=== PATIENT | female | born 1980 | race Caucasian/White ===

== ENCOUNTER 2018-01-05 01:09 | Emergency (ER) | payer BC ==
[2018-01-05] MEDS ORDERED: TETANUS & DIPHTHERIA TOX,ADULT 0.5 ML VIAL ONE (02:01)
[2018-01-05] MEDS ORDERED: LIDOCAINE 1% MPF 30 ML VIAL ONE (02:01)
[2018-01-05] MEDS ORDERED: DERMABOND SKIN ADHESIVE TOP ONE (02:42)
[2018-01-05] MEDS ORDERED: IBUPROFEN 200 MG TAB PO ONE (03:25)
--- NOTE | 2018-01-05 03:36 | ER ---
Nurse's Notes [facility] Name: Barbara Moreno Age: 37 yrs Sex: Female : 1980 Arrival Date: 01/05/2018 Time: 01:11 Bed 14 Private MD: Diagnosis: Laceration without foreign body of left hand;Laceration without foreign body of left forearm;Laceration without foreign body of right elbow;Abrasion of right forearm Presentation: 01/05 01:20 Presenting complaint: Patient states: "Was at home and accidentally hit a window ao glass." Patient presented with lacerations in right hand and bilateral elbows. Transition of care: patient was not received from another setting of care. Onset of symptoms is unknown. Risk Assessment: Do you want to hurt yourself or someone else? Patient reports no desire to harm self or others. Initial Sepsis Screen: Does the patient meet any 2 criteria? No. Patient's initial sepsis screen is negative. Does the patient have a suspected source of infection? No. Patient's initial sepsis screen is negative. Care prior to arrival: None. 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 - Social history:: Smoking status: Patient uses tobacco products, smokes one pack cigarettes per day. Patient uses alcohol, weekly. Patient/guardian denies using street drugs, IV drugs. - Ebola Screening: : Patient negative for fever greater than or equal to 101.5 degrees Fahrenheit, and additional compatible Ebola Virus Disease symptoms Patient denies exposure to infectious person Patient denies travel to an Ebola-affected area in the 21 days before illness onset. Screenin:06 Abuse screen: Denies threats or abuse. Nutritional screening: No deficits noted. jb4 Tuberculosis screening: No symptoms or risk factors identified. Fall Risk None identified. Assessment: 01:30 General: Appears in no apparent distress. uncomfortable, Behavior is calm, cooperative, jb4 appropriate for age, Smells of alcohol. Pain: Complains of pain in right hand, left hand, right arm and left arm Pain does not radiate. Pain currently is 10 out of 10 on a pain scale. at worst was 10 out of 10 on a pain scale. Quality of pain is described as sharp, Pain began 2 hours ago. Neuro: Level of Consciousness is awake, alert, obeys commands, Oriented to person, place, time, situation. Cardiovascular: Patient's skin is warm and dry. Respiratory: Airway is patent Respiratory effort is even, unlabored, Respiratory pattern is regular, symmetrical. GI: No signs and/or symptoms were reported involving the gastrointestinal system. : No signs and/or symptoms were reported regarding the genitourinary system. EENT: No signs and/or symptoms were reported regarding the EENT system. Derm: Skin is pink, warm \\T\\ dry. Musculoskeletal: Circulation, motion, and sensation intact. Injury Description: Laceration sustained to palmar aspect of distal phalanx of right little finger, palmar aspect of proximal phalanx of right ring finger, palmar aspect of distal phalanx of right thumb, outer aspect of right palm, palmar aspect of right forearm and left tricep is clean, full thickness, 2.6 to 7.5 cm long, bleeding moderately, Multiple smaller lacerations noted to the dorsal right forearm. 02:26 Reassessment: Patient appears in no apparent distress at this time. Patient and/or jb4 family updated on plan of care and expected duration. Pain level reassessed. Patient is alert, oriented x 3, equal unlabored respirations, skin warm/dry/pink. 03:21 Reassessment: Patient appears in no apparent distress at this time. Patient and/or jb4 family updated on plan of care and expected duration. Pain level reassessed. Patient is alert, oriented x 3, equal unlabored respirations, skin warm/dry/pink. Vital Signs: 01:22 BP 109 / 70; Pulse 86; Resp 20; Temp 98.1(O); Pulse Ox 98% on R/A; Weight 68.04 kg (R); ao Height 5 ft. 9 in. (175.26 cm); Pain 8/10; 02:15 BP 115 / 72; Pulse 71; Resp 16; Pulse Ox 100% on R/A; jb4 03:21 BP 117 / 64; Pulse 77; Resp 16; Pulse Ox 100% on R/A; jb4 01:22 Body Mass Index 22.15 (68.04 kg, 175.26 cm) ao ED Course: 01:11 Patient arrived in ED. am2 01:20 Octaviano Zhao, RN is Primary Nurse. ao 01:20 Vernon Arvizu, KIANA is PHCP. pm1 01:20 Shabbir Lorenzana MD is Attending Physician. pm1 01:20 Roni Donald, KARLOS is Primary Nurse. jb4 01:22 Triage completed. ao 01:24 Arm band placed on right wrist. Patient placed in an exam room, on a stretcher, on ao pulse oximetry, Patient notified of wait time. 02:06 Patient has correct armband on for positive identification. Bed in low position. Call jb4 light in reach. Side rails up X 1. Pulse ox on. NIBP on. 02:32 X-ray completed. Portable x-ray completed in exam room. Patient tolerated procedure kw well. 02:34 Elbow Left 3 View XRAY In Process Unspecified. EDMS 02:34 Hand Right 3 View XRAY In Process Unspecified. EDMS 02:34 Forearm Right XRAY In Process Unspecified. EDMS 03:21 Assist provider with laceration repair on palmar aspect of right forearm, outer aspect jb4 of right palm and left tricep that was between 2.6 to 7.5 cm using sutures. Set up tray. Performed by Vernon Arvizu [employer]RIER Dressed with Kerlix, Neosporin. 03:46 Patient did not have IV access during this emergency room visit. 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 Exp: jb4 02/24/2020. Lot #: [id number]. } Route: IM; Site: right deltoid; 02:53 Follow up: Response: No adverse reaction jb4 02:45 Drug: Lidocaine (1 %) 1 application Volume: 20 ml; Route: Infiltration; jb4 02:52 Follow up: Response: No adverse reaction; Pain is decreased jb4 03:20 Drug: Ibuprofen 600 mg Route: PO; jb4 03:37 Follow up: Response: No adverse reaction; Pain is decreased jb4 Outcome: 03:36 Discharge ordered by MD. pm1 03:45 Discharged to home ambulatory. jb4 03:45 Condition: stable 03:45 Discharge instructions given to patient, Instructed on discharge instructions, follow up and referral plans. medication usage, wound care, Demonstrated understanding of instructions, follow-up care, medications, wound care, Prescriptions given X 1. 03:46 Patient left the ED. jb4 Signatures: Dispatcher [employer] EDMS Rahel Lopez Alex, RN RN Vernon Sandoval NP [employer] pm1 Roni Dnoald RN RN jb4 Vonda Marcelino am2 Corrections: (The following items were deleted from the chart) 02:02 General: Appears in no apparent distress. uncomfortable, Behavior is calm, jb4 cooperative, appropriate for age, Smells of alcohol, jb4 02:02 Pain: Complains of pain in right hand, left hand, right arm and left arm Pain jb4 does not radiate. Pain currently is 10 out of 10 on a pain scale. at worst was 10 out of 10 on a pain scale. Quality of pain is described as sharp, Pain began 2 hours ago. 4 02:02 Neuro: Level of Consciousness is awake, alert, obeys commands, Oriented to jb4 person, place, time, situation, 4 02:02 Cardiovascular: Patient's skin is warm and dry. jb4 jb4 02:02 Respiratory: Airway is patent Respiratory effort is even, unlabored, Respiratory jb4 pattern is regular, symmetrical, jb4 02:02 GI: No signs and/or symptoms were reported involving the gastrointestinal system. jb4 jb4 02:02 : No signs and/or symptoms were reported regarding the genitourinary system. [id number] 02:02 EENT: No signs and/or symptoms were reported regarding the EENT system. jb4 jb4 02:02 Derm: Skin is pink, warm \\T\\ dry. jb4 jb4 02:02 Musculoskeletal: Circulation, motion, and sensation intact. jb4 4 02:02 Injury Description: Laceration sustained to palmar aspect of distal phalanx of jb4 right little finger, palmar aspect of proximal phalanx of right ring finger, palmar aspect of distal phalanx of right thumb, outer aspect of right palm, palmar aspect of right forearm and left tricep is clean, full thickness, 2.6 to 7.5 cm long, bleeding moderately, Multiple smaller lacerations noted to the dorsal right forearm jb4
--- NOTE | 2018-01-05 03:37 | EDPHYS ---
Physician Documentation [facility] Name: Barbara Moreno Age: 37 yrs Sex: Female : 1980 Arrival Date: 01/05/2018 Time: 01:11 Bed 14 Private MD: ED Physician Shabbir Lorenzana HPI: 01/05 02:00 This 37 yrs old Female presents to ER via EMS with complaints of Arm Injury, pm1 Laceration To Arm. 02:00 The patient or guardian complains of a laceration, irregular. The complaints affect the pm1 right hand and palmar aspect of right forearm, left elbow. Context: The problem was sustained outdoors. Onset: The symptoms/episode began/occurred just prior to arrival. Treatment prior to arrival includes: no previous treatment. Modifying factors: The symptoms are alleviated by nothing. the symptoms are aggravated by nothing. Associated signs and symptoms: Pertinent negatives: decreased range of motion, numbness, tingling. The patient has not experienced similar symptoms in the past. The patient has not recently seen a physician. Patient put her hands on a glass window to slide it upwards and she fell through the window and cut her right hand, right forearm and left elbow. 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 - Social history:: Smoking status: Patient uses tobacco products, smokes one pack cigarettes per day. Patient uses alcohol, weekly. Patient/guardian denies using street drugs, IV drugs. - Ebola Screening: : Patient negative for fever greater than or equal to 101.5 degrees Fahrenheit, and additional compatible Ebola Virus Disease symptoms Patient denies exposure to infectious person Patient denies travel to an Ebola-affected area in the 21 days before illness onset. ROS: 02:00 Constitutional: Negative for fever, chills, and weight loss, Eyes: Negative for injury, pm1 pain, redness, and discharge, ENT: Negative for injury, pain, and discharge, Neck: Negative for injury, pain, and swelling, Cardiovascular: Negative for chest pain, palpitations, and edema, Respiratory: Negative for shortness of breath, cough, wheezing, and pleuritic chest pain, Abdomen/GI: Negative for abdominal pain, nausea, vomiting, diarrhea, and constipation, Back: Negative for injury and pain, : Negative for injury, bleeding, discharge, and swelling, MS/Extremity: Negative for injury and deformity. 02:00 Skin: Positive for laceration(s), of the left elbow and palmar aspect of right forearm and right hand. Exam: 02:00 Constitutional: This is a well developed, well nourished patient who is awake, alert, pm1 and in no acute distress. Head/Face: Normocephalic, atraumatic. Eyes: Pupils equal round and reactive to light, extra-ocular motions intact. Lids and lashes normal. Conjunctiva and sclera are non-icteric and not injected. Cornea within normal limits. Periorbital areas with no swelling, redness, or edema. ENT: Nares patent. No nasal discharge, no septal abnormalities noted. Tympanic membranes are normal and external auditory canals are clear. Oropharynx with no redness, swelling, or masses, exudates, or evidence of obstruction, uvula midline. Mucous membranes moist. Neck: Trachea midline, no thyromegaly or masses palpated, and no cervical lymphadenopathy. Supple, full range of motion without nuchal rigidity, or vertebral point tenderness. No Meningismus. Chest/axilla: Normal chest wall appearance and motion. Nontender with no deformity. No lesions are appreciated. Cardiovascular: Regular rate and rhythm with a normal S1 and S2. No gallops, murmurs, or rubs. Normal PMI, no JVD. No pulse deficits. Respiratory: Lungs have equal breath sounds bilaterally, clear to auscultation and percussion. No rales, rhonchi or wheezes noted. No increased work of breathing, no retractions or nasal flaring. Abdomen/GI: Soft, non-tender, with normal bowel sounds. No distension or tympany. No guarding or rebound. No evidence of tenderness throughout. Back: No spinal tenderness. No costovertebral tenderness. Full range of motion. 02:00 MS/ Extremity: Pulses equal, no cyanosis. Neurovascular intact. Full, normal range of motion. 02:00 Skin: Appearance: normal except for affected area, injury, laceration(s), that can be described as no foreign body, irregular. 02:00 Neuro: Orientation: is normal, Motor: is normal, moves all fours, Gait: is steady, at a normal pace, without difficulty. Vital Signs: 01:22 BP 109 / 70; Pulse 86; Resp 20; Temp 98.1(O); Pulse Ox 98% on R/A; Weight 68.04 kg (R); ao Height 5 ft. 9 in. (175.26 cm); Pain 8/10; 02:15 BP 115 / 72; Pulse 71; Resp 16; Pulse Ox 100% on R/A; jb4 03:21 BP 117 / 64; Pulse 77; Resp 16; Pulse Ox 100% on R/A; jb4 01:22 Body Mass Index 22.15 (68.04 kg, 175.26 cm) ao Laceration: 03:37 Wound Repair of 15cm ( 5.9in ) subcutaneous laceration to palmar aspect of right pm1 forearm and left elbow and right hand. Irregularly shaped.. Distal neuro/vascular/tendon intact. Anesthesia: Local anesthetic administered with 6 mls of Lido/Marcaine. Wound prep: Extensive cleansing with hibiclenz by nurse, Wound irrigation with saline by me, Wound explored extensively, Copious irrigation. Skin closed with 26 4-0 Prolene using simple sutures and sterile technique. Dressed with 4x4's. Patient tolerated well. MDM: 01:20 Patient medically screened. pm1 03:35 Data reviewed: vital signs. Data interpreted: Pulse oximetry: on room air is 100 %. pm1 Interpretation: normal. Counseling: I had a detailed discussion with the patient and/or guardian regarding: the historical points, exam findings, and any diagnostic results supporting the discharge/admit diagnosis, radiology results, the need for outpatient follow up, to return to the emergency department if symptoms worsen or persist or if there are any questions or concerns that arise at home. 01/05 01:28 Order name: Elbow Left 3 View XRAY pm1 01/05 01:28 Order name: Hand Right 3 View XRAY pm1 01/05 01:28 Order name: Forearm Right XRAY pm1 01/05 01:28 Order name: Prolene, Sutures; Complete Time: 02:53 pm1 01/05 01:28 Order name: Dressing - Wound; Complete Time: 01:56 pm1 01/05 01:28 Order name: Gloves, Sterile; Complete Time: 01:56 pm1 01/05 01:28 Order name: Setup Suture Tray; Complete Time: 01:56 pm1 01/05 03:34 Order name: Dermabond; Complete Time: 03:37 pm1 Administered Medications: 01:56 Not Given (Physician Discretion; Pt consumed unknown amount of alcohol.): [place] 5 jb4 mg-325 mg 1 tabs PO once 02:01 Drug: Tetanus-Diphtheria Toxoid Adult 0.5 ml {[employer]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 Exp: jb4 02/24/2020. Lot #: [id number]. } Route: IM; Site: right deltoid; 02:53 Follow up: Response: No adverse reaction jb4 02:45 Drug: Lidocaine (1 %) 1 application Volume: 20 ml; Route: Infiltration; jb4 02:52 Follow up: Response: No adverse reaction; Pain is decreased jb4 03:20 Drug: Ibuprofen 600 mg Route: PO; jb4 03:37 Follow up: Response: No adverse reaction; Pain is decreased jb4 Disposition: 03:52 Co-signature as Attending Physician, Shabbir Lorenzana MD. andrei Disposition: 01/05/18 03:36 Discharged to Home. Impression: Laceration without foreign body of left hand, Laceration without foreign body of left forearm, Laceration without foreign body of right elbow, Abrasion of right forearm. - Condition is Stable. - Discharge Instructions: Tissue Adhesive Wound Care, Laceration Care, Adult. - Prescriptions for Keflex 500 mg Oral Capsule - take 1 capsule by ORAL route every 12 hours for 10 days; 20 capsule. - Medication Reconciliation Form, Thank You Letter, Antibiotic Education form. - Follow up: Emergency Department; When: As needed; Reason: Worsening of condition. Follow up: Private Physician; When: 10 - 14 days; Reason: Recheck today's complaints, Continuance of care, Staple/Suture removal, Re-evaluation by your physician. - Problem is new. - Symptoms have improved. Signatures: Dispatcher [employer] EDMS Shabbir Lorenzana MD MD pkl Ortiz, Alex, RN RN ao Marinas, Patrick, TOXICS PROGRAM OFFICER TOXICS PROGRAM OFFICER pm1 Roni Donald RN RN jb4 Corrections: (The following items were deleted from the chart) 03:46 03:36 01/05/2018 03:36 Discharged to Home. Impression: Laceration without foreign body jb4 of left hand; Laceration without foreign body of left forearm; Laceration without foreign body of right elbow; Abrasion of right forearm. Condition is Stable. Forms are Medication Reconciliation Form, Thank You Letter, Antibiotic Education, Prescription Opioid Use. Follow up: Emergency Department; When: As needed; Reason: Worsening of condition. Follow up: Private Physician; When: 10 - 14 days; Reason: Recheck today's complaints, Continuance of care, Staple/Suture removal, Re-evaluation by your physician. Problem is new. Symptoms have improved. pm1
--- NOTE | 2018-01-05 08:44 | RAD REPORT ---
EXAM DESCRIPTION: RAD - Hand Right 3 View - 01/05/2018 2:34 am CLINICAL HISTORY: Hand trauma, laceration COMPARISON: None. FINDINGS: No fracture is identified. There is no dislocation or periosteal reaction noted. No forei gn body or other soft tissue abnormality. IMPRESSION: Negative right hand examination. No retained foreign body identified.
--- NOTE | 2018-01-05 08:45 | RAD REPORT ---
EXAM DESCRIPTION: RAD - Elbow Left 3 View - 01/05/2018 2:34 am CLINICAL HISTORY: Fall through plate glass window, elbow pain, laceration COMPARISON: None. FINDINGS: No fracture is identified and no elevated posterior fat pad. There is no dislocation or pe riosteal reaction noted. No foreign body or other soft tissue abnormality. IMPRESSION: Negative left elbow examination. No retained foreign body.
--- NOTE | 2018-01-05 08:46 | RAD REPORT ---
EXAM DESCRIPTION: RAD - Forearm Right - 01/05/2018 2:34 am CLINICAL HISTORY: Fall through plate glass window, arm pain COMPARISON: None. FINDINGS: No fracture is identified. There is no dislocation or periosteal reaction noted. Plate and screws are in place from prior proximal ulna fracture repair. No hardware fracture. Patient has remodeling changes near the articular surface of the ulna. No elbow joint effusion suspected. No retained foreign body seen. IMPRESSION: Negative right forearm examination. No retained foreign body seen.
== END 2018-01-05 03:46 | disposition home or self-care (01) ==
LOC: ER 01:09
PROC: 0JQJ0ZZ Repair Right Hand Subcutaneous Tissue and Fascia, Open Approach (ICD-10-PCS; principal; 2018-01-05)
PROC: 0JQH0ZZ Repair Left Lower Arm Subcutaneous Tissue and Fascia, Open Approach (ICD-10-PCS; 2018-01-05)
PROC: 0JQG0ZZ Repair Right Lower Arm Subcutaneous Tissue and Fascia, Open Approach (ICD-10-PCS; 2018-01-05)
DX: S61.412A Laceration without foreign body of left hand, initial encounter (principal); S51.812A Laceration without foreign body of left forearm, initial encounter; S51.012A Laceration without foreign body of left elbow, initial encounter; W18.02XA Striking against glass with subsequent fall, initial encounter; Y93.89 Activity, other specified; Y92.009 Unspecified place in unspecified non-institutional (private) residence as the place of occurrence of the external cause; Z23 Encounter for immunization
CPT/HCPCS: 90714; 99284

== ENCOUNTER 2018-01-18 17:45 | Emergency (ER) | payer BC ==
--- NOTE | 2018-01-18 18:30 | ER ---
Nurse's Notes [facility] Name: Barbara Moreno Age: 37 yrs Sex: Female : 1980 Arrival Date: 01/18/2018 Time: 17:48 Bed 12 Private MD: Diagnosis: Encounter for removal of sutures Presentation: 01/18 18:00 Presenting complaint: Patient states: "I need my stitches taken out." Sutures noted to ph R palm, R forearm, and L elbow, some redness present, pt denies drainage or fever. Transition of care: patient was not received from another setting of care. Onset of symptoms was January 18, 2018. Risk Assessment: Do you want to hurt yourself or someone else? Patient reports no desire to harm self or others. Care prior to arrival: None. 18:00 Method Of Arrival: Ambulatory 18:00 Acuity: [place] 5 ph 18:06 Initial Sepsis Screen: Does the patient meet any 2 criteria? No. Patient's initial ph sepsis screen is negative. Does the patient have a suspected source of infection? No. Patient's initial sepsis screen is negative. Historical: - Allergies: 18:03 No Known Allergies; ph - Home Meds: 18:03 Adderall XR 5 mg Oral cp24 1 cap once daily [Active]; ph - PSHx: 18:03 None; ph - Immunization history:: Adult Immunizations unknown, Last tetanus immunization: up to date. - Social history:: Smoking status: Patient uses tobacco products, smokes one-half pack cigarettes per day. - Ebola Screening: : No symptoms or risks identified at this time. Screenin:06 Abuse screen: Denies threats or abuse. Denies injuries from another. Nutritional ph screening: No deficits noted. Tuberculosis screening: No symptoms or risk factors identified. Fall Risk None identified. Assessment: 18:06 General: Appears in no apparent distress. comfortable, slender, well groomed, Behavior ph is calm, cooperative, appropriate for age, Denies fever. Pain: Complains of pain in right hand, right arm and left arm Pain currently is 1 out of 10 on a pain scale. Quality of pain is described as "soreness". Neuro: Level of Consciousness is awake, alert, obeys commands, Oriented to person, place, time, situation. Cardiovascular: Capillary refill < 3 seconds in bilateral fingers Patient's skin is warm and dry. Respiratory: Airway is patent Respiratory effort is even, unlabored. Derm: Skin is healthy with good turgor, Skin is pink, warm \\T\\ dry. sutures noted to R palm, R forearm and L elbow. Musculoskeletal: Circulation, motion, and sensation intact. Range of motion: intact in all extremities. Vital Signs: 18:01 BP 144 / 97; Pulse 95; Resp 18; Temp 97.3; Pulse Ox 98% on R/A; Weight 68.04 kg; Height ph 5 ft. 9 in. (175.26 cm); Pain 2/10; 18:01 Body Mass Index 22.15 (68.04 kg, 175.26 cm) ph ED Course: 17:48 Patient arrived in ED. as 18:01 Triage completed. ph 18:04 [facility]C [facility]. snw 18:04 Andre Field MD is Attending Physician. snw 18:05 Esther Landa, RN is Primary Nurse. ph 18:06 Arm band placed on Patient placed in an exam room. ph 18:06 Patient has correct armband on for positive identification. Call light in reach. ph 19:12 No provider procedures requiring assistance completed. Patient did not have IV access hb during this emergency room visit. Administered Medications: No medications were administered Outcome: 18:29 Discharge ordered by . snw 19:12 Discharged to home ambulatory. hb 19:12 Condition: stable 19:12 Discharge instructions given to patient, Instructed on discharge instructions, follow up and referral plans. medication usage, Demonstrated understanding of instructions, follow-up care, medications, wound care. 19:13 Patient left the ED. hb Signatures: Maria Ines Bui FNP-C FNP-Trish Patterson as Esther Landa, RN RN Bettye Pineda RN RN hb
--- NOTE | 2018-01-18 18:30 | EDPHYS ---
Physician Documentation [facility] Name: Barbara Moreno Age: 37 yrs Sex: Female : 1980 Arrival Date: 01/18/2018 Time: 17:48 Bed 12 Private MD: ED Andre Luis HPI: 01/18 19:00 This 37 yrs old Female presents to ER via Ambulatory with complaints of snw Suture Removal. 19:00 The patient has sutures on the left arm and right arm and right hand. Previous snw treatment: The patient was initially treated on January 05, 2018, the care was rendered at [facility], Treatment type: The patient's original treatment included sutures, Outpatient prescription(s): The patient was given prescription(s) for Keflex. Sutures/bro progress: The patient has no c/o's. The wound is well-healing with no redness, swelling, discharge, or dehiscence reported. The patient has not experienced similar symptoms in the past. The patient has not recently seen a physician. Historical: - Allergies: 18:03 No Known Allergies; ph - Home Meds: 18:03 Adderall XR 5 mg Oral cp24 1 cap once daily [Active]; ph - PSHx: 18:03 None; ph - Immunization history:: Adult Immunizations unknown, Last tetanus immunization: up to date. - Social history:: Smoking status: Patient uses tobacco products, smokes one-half pack cigarettes per day. - Ebola Screening: : No symptoms or risks identified at this time. ROS: 19:02 Constitutional: Negative for fever, chills, and weight loss, Eyes: Negative for injury, snw pain, redness, and discharge, ENT: Negative for injury, pain, and discharge, Neck: Negative for injury, pain, and swelling, Cardiovascular: Negative for chest pain, palpitations, and edema, Respiratory: Negative for shortness of breath, cough, wheezing, and pleuritic chest pain, Abdomen/GI: Negative for abdominal pain, nausea, vomiting, diarrhea, and constipation, Back: Negative for injury and pain, : Negative for injury, bleeding, discharge, and swelling, MS/Extremity: Negative for injury and deformity, Neuro: Negative for headache, weakness, numbness, tingling, and seizure. 19:02 Skin: Positive for laceration(s), with sutures intact, sites healthy, pt without complaint. Exam: 19:07 Constitutional: This is a well developed, well nourished patient who is awake, alert, snw and in no acute distress. Head/Face: Normocephalic, atraumatic. Eyes: Pupils equal round and reactive to light, extra-ocular motions intact. Lids and lashes normal. Conjunctiva and sclera are non-icteric and not injected. Cornea within normal limits. Periorbital areas with no swelling, redness, or edema. ENT: Nares patent. No nasal discharge, no septal abnormalities noted. Tympanic membranes are normal and external auditory canals are clear. Oropharynx with no redness, swelling, or masses, exudates, or evidence of obstruction, uvula midline. Mucous membranes moist. Neck: Trachea midline, no thyromegaly or masses palpated, and no cervical lymphadenopathy. Supple, full range of motion without nuchal rigidity, or vertebral point tenderness. No Meningismus. Chest/axilla: Normal chest wall appearance and motion. Nontender with no deformity. No lesions are appreciated. Cardiovascular: Regular rate and rhythm with a normal S1 and S2. No gallops, murmurs, or rubs. Normal PMI, no JVD. No pulse deficits. Respiratory: Lungs have equal breath sounds bilaterally, clear to auscultation and percussion. No rales, rhonchi or wheezes noted. No increased work of breathing, no retractions or nasal flaring. Abdomen/GI: Soft, non-tender, with normal bowel sounds. No distension or tympany. No guarding or rebound. No evidence of tenderness throughout. Back: No spinal tenderness. No costovertebral tenderness. Full range of motion. MS/ Extremity: Pulses equal, no cyanosis. Neurovascular intact. Full, normal range of motion. Neuro: Awake and alert, GCS 15, oriented to person, place, time, and situation. Cranial nerves II-XII grossly intact. Motor strength 5/5 in all extremities. Sensory grossly intact. Cerebellar exam normal. Normal gait. Psych: Awake, alert, with orientation to person, place and time. Behavior, mood, and affect are within normal limits. 19:07 Skin: Appearance: normal except for affected area, injury, healing lacerations with sutures intact. No noted s/s infection, areas well approximated. Vital Signs: 18:01 BP 144 / 97; Pulse 95; Resp 18; Temp 97.3; Pulse Ox 98% on R/A; Weight 68.04 kg; Height ph 5 ft. 9 in. (175.26 cm); Pain 2/10; 18:01 Body Mass Index 22.15 (68.04 kg, 175.26 cm) ph MDM: 18:07 Patient medically screened. snw 18:20 ED course: initial 01/05/18, on Keflex. snw 19:01 Data reviewed: vital signs, nurses notes. Data interpreted: Pulse oximetry: on room air snw is 98 %. Interpretation: normal. Counseling: I had a detailed discussion with the patient and/or guardian regarding: the historical points, exam findings, and any diagnostic results supporting the discharge/admit diagnosis, the presence of at least one elevated blood pressure reading (>120/80) during this emergency department visit, the need for outpatient follow up, to return to the emergency department if symptoms worsen or persist or if there are any questions or concerns that arise at home. Administered Medications: No medications were administered Disposition: 01/19 07:01 Co-signature as Attending Physician, Andre Field MD I agree with the assessment and erendira plan of care. Disposition: 01/18/18 18:29 Discharged to Home. Impression: Encounter for removal of sutures. - Condition is Stable. - Discharge Instructions: Hypertension, Suture Removal, Care After, Incision Care, Adult. - Medication Reconciliation Form, Thank You Letter, Antibiotic Education, Prescription Opioid Use form. - Follow up: Private Physician; When: 2 - 3 days; Reason: Recheck today's complaints, Continuance of care, Re-evaluation by your physician. Follow up: Emergency Department; When: As needed; Reason: Worsening of condition. Signatures: Andre Field MD MD cha Therrien, Shelly, CLAY MOLDER-C CLAY MOLDER-Csnw Esther Landa, RN RN ph Bettye Pineda RN RN hb Corrections: (The following items were deleted from the chart) 01/18 19:13 18:29 01/18/2018 18:29 Discharged to Home. Impression: Encounter for removal of hb sutures. Condition is Stable. Forms are Medication Reconciliation Form, Thank You Letter, Antibiotic Education, Prescription Opioid Use. Follow up: Private Physician; When: 2 - 3 days; Reason: Recheck today's complaints, Continuance of care, Re-evaluation by your physician. Follow up: Emergency Department; When: As needed; Reason: Worsening of condition. snw
== END 2018-01-18 19:13 | disposition home or self-care (01) ==
LOC: ER 17:45
DX: Z48.02 Encounter for removal of sutures (principal); F17.210 Nicotine dependence, cigarettes, uncomplicated
CPT/HCPCS: 99281

== ENCOUNTER 2024-01-26 16:56 | Inpatient (IN) | payer BC, SELFPAY ==
--- OUTSIDE RECORDS SUMMARY | 2024-01-26 17:00 | XMS REPORT | Continuity of Care Document ---
Author Name Unknown Address [address] [facility] [address] [place] [address] [facility] thconnect Address [address] [facility] [address] [place] [address] Care Team Providers Care Commercial Insulator Name Role Phone PCP, PATIENT DOES NOT HAVE A Primary Care Physic campbell Unavailable KUN VERGARA Attending Clinician KUN Castillo Attending Clinician SHAHLA Mary Attending Clinician Unavailable SHAHLA BISWAS Attending Clinician Unavailable Doctor Unassigned, [place] Attending Clinician U Kun Velasco MD Attending Clinician + [phone], [facility] Attending Clinician Unavailable Michelle Cruz DNP Attending Clinician [phone] GI MATHEW Attending Clinician Unavailable MICHELLE CRUZ Attending Clinician UnavailYocasta Martinez MD Attending Clinician [phone] Sandra Loco Attending Clinician [phone] Mitra Massey Attending Clinician [phone] MITRA RODRIGUEZ Attending Clinician Unavailable Eliza Balderrama RN Attending Clinician Unavailable Doctor Unassigned, [place] Attending Clinician U navailable 2, [facility] Attending Clinician Unavailable Narcisa EVERETT, Mikayla Johnston Attending Clinician Unavailab LENNIE Mckeon Attending Clinician UnavailAsael Morin DO Attending Clinician [phone], [facility] Attending Clinician Unavailable Paulie Cárdenas MD Attending Clinician Lab, [facility] Fam Pob I Attending Clinician Unavailab Saskia Ward Attending Clinician SASKIA BARTON Attending Clinician Unavailable Jocelin PATRICIO, Khris Attending Clinician Payers Payer Name Policy Type Policy Number Effective Date Expirati on Date Source [facility] [id number] 2016 00:00:00 Problems Condition Name Condition Details Condition Category Status Onset Date Resolution Date Last Treatment Date Treating Clinician Comments Source Right elbow pain Right elbow pain Disease Active 09-10 00:00: 00 [facility] Allergies, Adverse Reactions, Alerts Allergy Name Allergy Type Status Severity Reaction(s) Onset Date Inactive Date Treating Clinician Comments Source NO KNOWN ALLERGIE S Drug Class Active [facility] Social History Social Habit Start Date Stop Date Quantity Comments [facility] intake 2023-11-25 00:00:00 2023-11-25 00:00:00 12 /d [facility] Tobacco use and exposure 2023-11-25 00:00:00 2023-11-25 00:00:00 Former smokeless tobacco user [facility] Exposure to SARS-CoV-2 (event) 2022-04-12 00:00:00 2022-04-22 14:16:00 Not sure [facility] History of tobacco use 2020-09-29 00:00:00 User of smokeless tobacco [facility] Alcohol intake 2019-09-02 00:00:00 2019-09-02 00:00:00 12 /d [facility] History of Social function 2018-09-15 00:00:00 2018-09-15 00:00:00 [facility] Cigarettes smoked current (pack per day) - Reported 2016-09-17 00:00:00 2016-09-17 00:00:00 [facility] Sex assigned at 1980 00:00:00 1980 00:00:00 [facility] Smoking Status Start Date Stop Date Source Ex-smoker 2023-11-25 00:00:00 2023-11-25 [facility] tobacco daily 2016-09-17 00:00:00 [facility] Medications Ordered Medication Name Filled Medication Name Start Date Stop Date Current Medication? Ordering Clinician Indication Dosage Frequency Signature (SIG) Comments Components Source metroNIDAZO LE (FLAGYL) 500 mg tablet 11-26 00:00: 00 Yes [id number] 500mg Take 1 tablet by mouth every 12 (twelve) hours. [facility] fluconazole (DIFLUCAN) 150 mg tablet 11-26 00:00: 00 11-27 04:59 :00 Yes [id number] 150mg Take 1 tablet by mouth once now for 1 dose. [facility] valACYclovi r (VALTREX) 1 gram tablet 11-24 00:00: 00 Yes [id number] 1g Take 1 tablet by mouth in the morning and 1 tablet in the evening. [facility] fluconazole (DIFLUCAN) 150 mg tablet 11-24 00:00: 00 11-25 04:59 :00 Yes [id number] 150mg Take 1 tablet by mouth once now for 1 dose. [facility] ACYCLOVIR 200 mg capsule 20 00:00: 00 Yes [id number] TAKE ONE (1) CAPSULE(S) BY MOUTH 5 TIMES DAILY. [facility] acyclovir 200 mg capsule 2-24 00:00: 00 07-25 00:00 :00 No [id number] 200mg Take 1 capsule by mouth 5 (five) times daily. [facility] lidocaine 5 % ointment 2-16 00:00: 00 Yes Apply to area(s) 2 (two) times daily as needed (PAIN). [facility] lidocaine 2 % mucosal jelly 2023-0 2-15 00:00: 00 Yes [id number] Apply to affected area q 8hrs prn [facility] acyclovir 200 mg capsule 2-15 00:00: 00 05-01 00:00 :00 No [id number] 200mg Take 1 capsule by mouth 5 (five) times daily. [facility] ALPRAZolam (XANAX) 0.25 mg tablet 10-30 15:52: 22 10-30 00:00 :00 No .25mg Take 0.25 mg by mouth 3 (three) times daily as needed. [facility] dextroamphe tamine-amph etamine (ADDERALL) 20 mg tablet 10-30 15:26: 23 Yes 20mg Take 20 mg by mouth 2 (two) times daily. [facility] dextroamphe tamine-amph etamine (ADDERALL) 20 mg tablet 10-30 10:26: 23 Yes 20mg Take 20 mg by mouth 2 (two) times daily. [facility] miSOPROStoL 200 mcg tablet 10-30 00:00: 00 Yes [id number] 200ug Take 1 tablet by mouth every 12 (twelve) hours. Take one table the night prior to procedure and the 2nd one on the morning of the procedure [facility] ALPRAZolam 0.5 mg tablet 10-09 00:00: 00 Yes TAKE ONE (1) TABLET(S) BY MOUTH TWICE A DAY NEEDED FOR PAIN. [facility] dextroamphe tamine-amph etamine 15 mg tablet 10-09 00:00: 00 10-30 00:00 :00 No 15mg Take 15 mg by mouth 3 (three) times daily. [facility] omeprazole (PRILOSEC) capsule 20 mg 07-12 14:00: 00 Yes 20mg 20 mg, Oral, DAILY, First dose on Wed07/12/20 at 0900, Until Discontinu ed, Routine [facility] hydrOXYzine (ATARAX) tablet 25 mg 07-12 06:45: 07-12 05:48 :00 No 25mg 25 mg, Oral, ONCE, 1 dose, 07[facility]12[facility]20 [facility] 0145[facility] famot[facility] (PEPCID AC[facility] 20 mg 07-12 06:45: 00 07-12 05:49 :00 No 20mg 20 mg, Oral, ONCE, 1 dose, 07/12/20 [facility] 0145[facility] dexamethaso ne (DECADRON PHOSPHATE) injection 10 mg 07-12 06:45: 00 07-12 05:50 :00 No 10mg 10 mg, Oral, ONCE, 1 dose, 07/12/20 at 0145, Routine [facility] cetirizine (ZYRTEC) 10 mg tablet 07-12 00:00: 00 08-12 04:59 :00 No [id number] 10mg Take 1 tablet by mouth daily for 30 days. [facility] famotidine (PEPCID AC) tablet 20 mg 09-01 21:00: 00 09-01 19:59 :00 No 20mg 20 mg, Oral, ONCE, 1 dose, 09/02/19 at 1600, [facility] diphenhydrA MINE (BENADRYL) tablet 25 mg 09-01 21:00: 00 09-01 19:59 :00 No 25mg 25 mg, Oral, ONCE, 1 dose, 09/02/19 at 1600, [facility] dexamethaso ne (DECADRON PHOSPHATE) injection 10 mg 09-01 20:45: 00 09-01 19:54 :00 No 10mg 10 mg, Intramuscu lar, ONCE, 1 dose, 09/02/19 at 1545, STAT [facility] diphenhydrA MINE (BENADRYL ALLERGY) 25 mg tablet 09-01 00:00: 00 10-30 00:00 :00 No [id number] 25mg Take 1 tablet by mouth every 4 (four) hours as needed for Itching or Allergies (swelling) . [facility] famotidine (PEPCID) 20 mg tablet 09-01 00:00: 00 10-30 00:00 :00 No [id number] 20mg Take 1 tablet by mouth 2 (two) times daily. [facility] predniSONE 20 mg tablet 09-01 00:00: 00 09-07 04:59 :00 No [id number] 60mg Take 3 tablets by mouth every morning for 5 days. [facility] ALPRAZolam (XANAX) 0.25 mg tablet 07-19 18:53: 08 Yes .25mg Take 0.25 mg by mouth 3 (three) times daily as needed. [facility] dextroamphe tamine-amph etamine (ADDERALL) 20 mg tablet 07-19 18:53: 08 Yes 20mg Take 20 mg by mouth 2 (two) times daily. [facility] cefUROXime 250 mg tablet 07-19 00:00: 00 10-30 00:00 :00 No [id number] 250mg Take 1 tablet by mouth 2 (two) times daily. [facility] Vital Signs Vital Name Observation Time Observation Value Comments S ource Systolic blood pressure 2023-11-25 14:18:00 125 mm[Hg] [facility] Diastolic blood pressure 2023-11-25 14:18:00 86 mm[Hg] [facility] Heart rate 2023-11-25 14:18:00 110 /min [facility] Body temperature 2023-11-25 14:18:00 37.06 Sanaz [facility] Body height 2023-11-25 14:18:00 176.5 cm [facility] Body weight 2023-11-25 14:18:00 73.936 kg [facility] BMI 2023-11-25 14:18:00 23.73 kg/m2 [facility] Systolic blood pressure 2022-04-22 21:05:00 158 mm[Hg] [facility] Diastolic blood pressure 2022-04-22 21:05:00 100 mm[Hg] [facility] Heart rate 2022-04-22 20:56:00 112 /min [facility] Body height 2022-04-22 20:56:00 176.5 cm [facility] weight 2022-04-22 20:56:00 73.029 kg Univ [facility] BMI 2022-04-22 20:56:00 23.43 kg/m2 Univ [facility] Systolic blood pressure 2021-09-04 18:49:00 160 mm[Hg] [facility] Diastolic blood pressure 2021-09-04 18:49:00 126 mm[Hg] [facility] Heart rate 2021-09-04 18:48:00 107 /min Unive [facility] Body temperature 2021-09-04 18:48:00 36.83 Sanaz [facility] Respiratory rate 2021-09-04 18:48:00 18 /min [facility] Body height 2021-09-04 18:48:00 175.3 cm Univ [facility] Body weight 2021-09-04 18:48:00 70.716 kg [facility] BMI 2021-09-04 18:48:00 23.02 kg/m2 [facility] Oxygen saturation in Arterial blood by Pulse oximetry 2021-09-04 18:48:00 99 /min [facility] Systolic blood pressure 2020-10-30 15:25:00 134 mm[Hg] [facility] Diastolic blood pressure 2020-10-30 15:25:00 93 mm[Hg] [facility] Heart rate 2020-10-30 15:16:00 116 /min Unive [facility] Body temperature 2020-10-30 15:16:00 36.44 Sanaz [facility] Respiratory rate 2020-10-30 15:16:00 18 /min [facility] Body height 2020-10-30 15:16:00 170.2 cm Univ [facility] Body weight 2020-10-30 15:16:00 70.308 kg Univ [facility] BMI 2020-10-30 15:16:00 24.28 kg/m2 [facility] Systolic blood pressure 2020-07-12 06:00:00 119 mm[Hg] [facility] Diastolic blood pressure 2020-07-12 06:00:00 93 mm[Hg] [facility] Heart rate 2020-07-12 06:00:00 96 /min Unive [facility] Respiratory rate 2020-07-12 06:00:00 22 /min [facility] Oxygen saturation in Arterial blood by Pulse oximetry 2020-07-12 06:00:00 100 /min [facility] Body temperature 2020-07-12 05:21:00 36.61 Sanaz [facility] Body height 2020-07-12 05:21:00 170.2 cm [facility] Body weight 2020-07-12 05:21:00 68.04 kg [facility] BMI 2020-07-12 05:21:00 23.49 kg/m2 [facility] Systolic blood pressure 2019-09-02 19:21:00 151 mm[Hg] [facility] Diastolic blood pressure 2019-09-02 19:21:00 108 mm[Hg] [facility] Heart rate 2019-09-02 19:21:00 110 /min [facility] Body temperature 2019-09-02 19:21:00 37.22 Sanaz [facility] Respiratory rate 2019-09-02 19:21:00 18 /min [facility] Body height 2019-09-02 19:21:00 175.3 cm [facility] Body weight 2019-09-02 19:21:00 68.04 kg [facility] BMI 2019-09-02 19:21:00 22.15 kg/m2 [facility] Oxygen saturation in Arterial blood by Pulse oximetry 2019-09-02 19:21:00 100 /min [facility] Systolic blood pressure 2019-09-02 19:21:00 151 mm[Hg] [facility] Diastolic blood pressure 2019-09-02 19:21:00 108 mm[Hg] [facility] Heart rate 2019-09-02 19:21:00 110 /min [facility] Body temperature 2019-09-02 19:21:00 37.22 Sanaz [facility] Respiratory rate 2019-09-02 19:21:00 18 /min [facility] Body height 2019-09-02 19:21:00 175.3 cm [facility] Body weight 2019-09-02 19:21:00 68.04 kg [facility] BMI 2019-09-02 19:21:00 22.15 kg/m2 [facility] Oxygen saturation in Arterial blood by Pulse oximetry 2019-09-02 19:21:00 100 /min [place] [facility] Procedures Procedure Date / Time Performed Performing Clinician Source NO SHOW OR MISSED APPOINTMENT POLICY ACKNOWLEDGEMENT 2019-10-17 17:29:42 Doctor Unassigned, [place] [facility] CONSENT/REFUSAL FOR DIAGNOSIS AND TREATMENT 2019-09-02 19:15:35 Doctor Unassigned, [place] [facility] Encounters Start Date/Time End Date/Time Encounter Type Admission Type Attending Clinicians Care Facility Care Department Encounter ID Source 2021-01-05 17:40:18 Emergency [facility] [id number] [facility] 2021-01-03 03:15:38 Emergency [facility] [id number] [facility] 2023-11-29 00:00:00 2024-01-01 18:24:23 Patient Secure Msg Doctor Unassigned, [place] Doctor Unassigned, [place] [id number] 350.1.13.10 4.2.7.2.686 [id number] [facility] 2023-12-27 00:00:00 2023-12-31 12:36:22 Refill Dixie Mckaysol [address]840.114 350.1.13.10 4.2.7.2.686 [id number] [facility] 2023-12-27 13:30:00 2023-12-27 13:30:00 Outpatient R KUN MCKAY RODRIGUEZ-SAMIA S, KUN [facility] [id number] [facility] 2023-11-27 00:00:00 2023-11-27 07:01:23 Case Management Dixie Mckaysol [facility] 1.2.840.114 350.1.13.10 4.2.7.2.686 [id number] [facility] 2023-11-25 10:00:00 2023-11-25 10:15:00 Bus Transportation Manager Visit 2, [facility] Foster davis, Kun 2, Adc Lab [facility] 1.2.840.114 350.1.13.10 4.2.7.2.686 [id number] [facility] 2023-11-25 09:00:00 2023-11-25 09:49:46 Outpatient R JENNIFER-SAMIA Davis, KUN RODRIGUEZ-SAMIA S, KUN [facility] [id number] [facility] 2023-11-25 09:00:00 2023-11-25 09:49:46 Office Visit Dixie Mckaysol [facility] 1.2.840.114 350.1.13.10 4.2.7.2.686 [id number] [facility] 2023-11-25 00:00:00 2023-11-25 09:49:17 Letter (Out) Vipini sDixieKun [facility] 1.2.840.114 350.1.13.10 4.2.7.2.686 [id number] [facility] 2023-07-23 00:00:00 2023-07-26 15:18:30 Refill Michelle Cruz [facility] 1.2.840.114 350.1.13.10 4.2.7.2.686 [id number] [facility] 2022-05-01 00:00:00 2022-05-01 00:00:00 Patient Secure Msg Nancy, [facility] MEDICAL OFFICE BUILDING 1.2.840.114 350.1.13.10 4.2.7.2.686 [id number] [facility] 2022-04-23 15:00:00 2022-04-23 15:00:00 Outpatient R MATHEW GI [facility] [id number] [facility] 2022-04-23 13:20:00 2022-04-23 13:20:00 Outpatient R NANCY, [facility] [id number] [facility] 2022-04-23 00:00:00 2022-04-23 00:00:00 Telephone Nancy, [facility] MEDICAL OFFICE BUILDING 1..840.114 350.1.13.10 4.2.7.2.686 [id number] [facility] 2022-04-23 00:00:00 2022-04-23 00:00:00 Telephone Nancy, [facility] MEDICAL OFFICE BUILDING 1.2.840.114 350.1.13.10 4.2.7.2.686 [id number] [facility] 2022-04-22 14:20:00 2022-04-22 15:27:17 Outpatient R NANCY [facility] [id number] [facility] 2022-04-22 14:20:00 2022-04-22 15:27:17 Office Visit Nancy, [facility] MEDICAL OFFICE BUILDING 1..840.114 350.1.13.10 4.2.7.2.686 [id number] [facility] 2022-04-20 00:00:00 2022-04-20 00:00:00 Telephone Yocasta Lorenzana Ivan [facility] 1..114 350.1.13.10 4.2.7.2.686 [id number] [facility] 2021-09-04 14:20:00 2021-09-04 14:40:00 Urgent Care Sandra Barajas, Critical access hospital JANUSZ?[facility] 1..114 350.1.13.10 4.2.7.2.686 [id number] [facility] 2021-09-04 14:20:00 2021-09-04 14:20:00 Outpatient MITRA BARONE [facility] [id number] [facility] 2021-09-04 00:00:00 2021-09-04 00:00:00 Nurse Triage Eliza Balderrama [facility] 1..114 350.1.13.10 4.2.7.2.686 [id number] [facility] 2021-09-03 00:00:00 2021-09-03 00:00:00 Patient Secure Msg Doctor Unassigned, [place] [facility] 1.0.114 350.1.13.10 4.2.7.2.686 [id number] [facility] 2020-12-05 00:00:00 2020-12-05 00:00:00 Outpatient SHAHLA FARRIS [facility] [id number] [facility] 2020-10-30 11:35:27 2020-10-30 11:50:27 Bus Transportation Manager Visit 2, [facility] Shahla Biswas [facility] Professio nal Building 1.84.114 350.1.13.10 4.2.7.2.686 [id number] [facility] 2020-10-30 11:35:27 2020-10-30 11:50:27 Bus Transportation Manager Visit 2, [facility] Lab Shahla Biswas [facility] 1.2840.114 350.1.13.10 4.2.7.2.686 [id number] [facility] 2020-10-30 10:11:36 2020-10-30 11:32:03 Office Visit Shahla Biswas [facility] 1.20.114 350.1.13.10 4.2.7.2.686 [id number] [facility] 2020-10-30 10:00:00 2020-10-30 10:00:00 Outpatient R ROSSY [facility] [id number] [facility] 2020-10-29 00:00:00 2020-10-29 00:00:00 Letter (Out) Eliza Balderrama [facility] 1.2840.114 350.1.13.10 4.2.7.2.686 [id number] [facility] 2020-10-29 00:00:00 2020-10-29 00:00:00 Letter (Out) Mikayla Brewster [facility] 1.2840.114 350.1.13.10 4.2.7.2.686 [id number] [facility] 2020-10-28 09:15:00 2020-10-28 09:15:00 Outpatient R LENNIE COURTNEY [facility] [id number] [facility] 2020-10-24 13:00:00 2020-10-24 13:00:00 Outpatient R SHERLYNMARIAN [facility] [id number] [facility] 2020-07-12 00:19:00 2020-07-12 01:47:00 Emergency Asael El [facility] 1.2840.114 350.1.13.10 4.2.7.2.686 [id number] [facility] 2019-10-17 12:29:50 2019-10-17 12:44:50 Bus Transportation Manager Visit 1, Adc [facility] 1.2.840.114 350.1.13.10 4.2.7.2.686 [id number] 2019-10-17 12:29:50 2019-10-17 12:44:50 Bus Transportation Manager Visit 1, Ad[facility] Lab Paulie Cárdenas [facility] 1.2.840.114 350.1.13.10 4.2.7.2.686 [id number] [facility] 2019-10-17 12:15:00 2019-10-17 12:15:00 Outpatient R [facility] [id number] [facility] 2019-10-17 00:00:00 2019-10-17 00:00:00 Orders Only Doctor Unassigned, [place] [facility] 1.2.840.114 350.1.13.10 4.2.7.2.686 [id number] 2019-10-17 00:00:00 2019-10-17 00:00:00 Orders Only Doctor Unassigned, [place] [facility] 1.2.840.114 350.1.13.10 4.2.7.2.686 [id number] [facility] 2019-10-17 00:00:00 2019-10-17 00:00:00 Patient Secure Msg Doctor Unassigned, [place] [facility] 1.2.840.114 350.1.13.10 4.2.7.2.686 [id number] [facility] 2019-10-12 16:24:23 2019-10-12 16:44:23 Laboratory Only Lab, Adc Fam Pob I [facility] Profess nal Office Building One 1.2840.114 350.1.13.10 4.2.7.2.686 [id number] 2019-10-12 16:24:23 2019-10-12 16:44:23 Laboratory Only Lab, [facility] 1..114 350.1.13.10 4.2.7.2.686 [id number] [facility] 2019-10-12 16:00:00 2019-10-12 16:00:00 [id number] 2019-10-12 15:20:00 2019-10-12 15:20:00 Outpatient Israel [facility] [id number] [facility] 2019-10-12 15:15:00 2019-10-12 15:15:00 Outpatient R [facility] [id number] [facility] 2019-10-12 00:00:00 2019-10-12 00:00:00 Letter (Out) Doctor Unassigned, [place] [facility] 1..114 350.1.13.10 4.2.7.2.686 [id number] 2019-10-12 00:00:00 2019-10-12 00:00:00 Letter (Out) Doctor Unassigned, [place] [facility] 1.0.114 350.1.13.10 4.2.7.2.686 [id number] [facility] 2019-09-02 14:23:37 2019-09-02 15:02:00 Emergency Khris Monreal [facility] 1.0.114 350.1.13.10 4.2.7.2.686 [id number] 2019-09-02 14:23:37 2019-09-02 15:02:00 Emergency Khris Monreal [facility] 1.0.114 350.1.13.10 4.2.7.2.686 [id number] [facility] 2019-09-02 00:00:00 2019-09-02 00:00:00 Orders Only Doctor Unassigned, [place] [facility] 1.2.840.114 350.1.13.10 4.2.7.2.686 [id number] 2019-09-02 00:00:00 2019-09-02 00:00:00 Orders Only Doctor Unassigned, [place] [facility] 1.2.840.114 350.1.13.10 4.2.7.2.686 [id number] [facility] Notes Date/Time Note Provider Source 2023-12-30 08:25:35 Attempted to reach pt, no answer Cinthya Andres RN 12/30/2023 8:25 AM Cinthya Andres RN [facility] 2023-12-28 08:24:45 Attempted to reach pt, no answer Cinthya Andres RN 12/28/2023 8:25 AM [facility] 2023-11-25 10:00:00 Images from the original note were not included. Venipuncture collection performed by clean technique on the left anticubitus. Total of 1 attempts were made. Slight pressure and a bandage/dressing were applied to the site(s). The patient experienced no complications. The following specimens were processed according to instructions and sent to [facility] laboratories per lab order on 11/25/2023 : LT BLUE SST 3 RED LAV 1 PPT DK GREEN (LiHep) DK GREEN (SodH) DORSEY DK BLUE (K2) DK BLUE (S) ACD Blood Culture NIPT/NTD [facility] 2023-07-26 10:30:02 Refilled per SDO's Jaylin Frederick MA 07/26/2023 10:28 AM [facility]
[2024-01-26] MEDS ORDERED: KETOROLAC 30 MG/ML INJ ONE (17:33)
[2024-01-26] MEDS ORDERED: NA CHLORIDE 0.9% 1,000 ML ONE (17:33)
[2024-01-26] MEDS ORDERED: DIAZEPAM 10 MG/2 ML INJ SYRINGE ONE (17:33)
[2024-01-26] MEDS ORDERED: ONDANSETRON 4 MG/2 ML VIAL ONE (17:33)
[2024-01-26 18:25] LABS: Albumin 3.6 g/dL (3.4-5.0); Albumin/Globulin Ratio 0.9 (1.1-1.8); Anion Gap 14.4 mEq/L (5.0-15.0); Bilirubin Total 0.8 mg/dL (0.2-1.0); Potassium 3.4 mEq/L (3.5-5.1); Protein, Total 7.6 g/dL (6.4-8.2)
--- NOTE | 2024-01-26 18:30 | RAD REPORT ---
EXAMINATION: Stone Protocol CLINICAL INDICATION: Abdominal pain/right flank pain TECHNIQUE: CT abdomen and pelvis was performed, without IV contrast, as per department protocol. Oral contrast not given. Axial, sagittal and coronal reconstructions were obtained. One or more of the following dose reduction techniques were used: Automated exposure control, adjustment of the mA and k V according to the patient size, and iterative reconstruction. Unless otherwise specified, incidental findings do not require dedicated imaging follow-up. COMPARISON: No prior exam. FINDINGS: The lack of intravenous and oral contrast limits the sensitivity of this exam for evaluation of solid visceral organs, vascular structures, and bowel A renal calculus not seen. No ureteral calculus. A bladder calculus not noted. No hydronephrosis Liver, spleen, pancreas and adrenals grossly normal No evidence of diverticulitis. The appendix is enlarged containing appendicoliths. Ill-defined fluid surrounds the appendix. No extr aluminal air. No abscess seen. IMPRESSION: Appendicitis
[2024-01-26 18:45] LABS: Absolute Lymphocytes (CBC) 0.5 K/uL (0.7-4.9); Absolute Neutrophil 14.5 K/uL (1.8-8.0); MPV 6.2 fL (7.6-11.3); Platelets 450 thou/uL (152-406)
[2024-01-26 18:47] LABS: Absolute Monocytes 1.3 K/uL (0.1-1.3); Basophils % 0.2 % (0-1.3); Eosinophils % 0.1 % (0-4.4); Hematocrit 20.8 % (36.0-45.0); Lymphocytes % 2.9 % (15.3-44.8); MCH 16.3 pg (27.0-35.0); MCHC 28.6 g/dL (32.0-36.0); MCV 56.8 fL (80-100); Monocytes % 7.9 % (3.3-12.3); Neutrophils % 88.9 % (41.7-73.7); Nucleated Red Blood Cells % 0.1 % (0-0); RBC Red Blood Cell Count 3.66 M/uL (3.86-4.86); Red Cell Distribution Width 19.8 % (12.1-15.2)
[2024-01-26 19:02] LABS: Specific Gravity 1.019 (1.005-1.030)
[2024-01-26 19:04] LABS: Specific Gravity 1.019 (1.005-1.030); Sqamous Epithelial <5 /HPF (None Seen); Urine Bacteria None Seen /HPF (<20); Urine Bilirubin NEGATIVE (Negative); Urine Blood Negative (Negative); Urine Clarity Clear (Clear); Urine Color Light-Yellow (Yellow); Urine Crystals Unidentified Few /HPF (None Seen); Urine Culture Reflex Order NOT NEEDED; Urine Glucose NEGATIVE (Negative); Urine Ketones 3+ (Negative); Urine Microscopic Reflex YN ORDER UMIC; Urine Mucus 1+ /HPF (None Seen); Urine Nitrite NEGATIVE (Negative); Urine Protein NEGATIVE (Negative); Urine RBC <5 /HPF (None Seen); Urine Urobilinogen Normal (Normal); Urine WBC <5 /HPF (<5); Urine Yeast (Budding) Trace /HPF (None Seen); Urine pH 5.5 (5.0-7.0)
[2024-01-26] MEDS ORDERED: MORPHINE 4 MG/ML SYR ONE (19:26)
--- NOTE | 2024-01-26 19:29 | EDPHYS ---
Physician Documentation [facility] Name: Barbara Moreno Age: 43 yrs Sex: Female : 1980 Arrival Date: 01/26/2024 Time: 16:56 Bed 2 Private MD: ED Physician Miguelito Moncada HPI: 01/25 17:35 This 43 yrs old Female presents to ER via Wheelchair with complaints of Abdominal Pain, cp Nausea. 17:35 The patient presents with abdominal pain. Associated signs and symptoms: Pertinent cp positives: nausea. 17:35 Onset: The symptoms/episode began/occurred this morning. cp 17:35 The symptoms radiate to right back, the right flank. The symptoms are described as cp constant. Severity of pain: in the emergency department the pain is unchanged despite home interventions. 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 - Infectious Disease History:: Denies. - Social history:: Smoking status: Reported history of juuling and/or vaping. ROS: 17:40 Constitutional: Negative for body aches, chills, fever, poor PO intake, cp 17:40 Eyes: Negative for injury, pain, redness, and discharge, cp 17:40 Cardiovascular: Negative for chest pain, 17:40 Respiratory: Negative for cough, shortness of breath, wheezing, 17:40 Abdomen/GI: Positive for abdominal pain, nausea, of the right lower quadrant, Negative for vomiting, diarrhea, constipation, 17:40 Back: Positive for radiated pain, 17:40 : Negative for urinary symptoms, vaginal bleeding, vaginal discharge, 17:40 Neuro: Negative for dizziness, headache, weakness, 17:40 All other systems are negative, Exam: 17:45 Constitutional: The patient appears in no acute distress, alert, awake, non-toxic, well cp developed, well nourished, uncomfortable, 17:45 Head/Face: Normocephalic, atraumatic. cp 17:45 Eyes: Periorbital structures: appear normal, Conjunctiva: normal, no exudate, no injection, Sclera: no appreciated abnormality, Lids and lashes: appear normal, bilaterally, 17:45 ENT: External ear(s): are unremarkable, Nose: is normal, Mouth: Lips: moist, Oral mucosa: moist, Posterior pharynx: Airway: no evidence of obstruction, patent, 17:45 Chest/axilla: Inspection: normal, 17:45 Cardiovascular: Rate: normal, Rhythm: regular, 17:45 Respiratory: the patient does not display signs of respiratory distress, Respirations: normal, no use of accessory muscles, no retractions, labored breathing, is not present, Breath sounds: are clear throughout, no decreased breath sounds, no stridor, no wheezing, 17:45 Abdomen/GI: Inspection: abdomen appears normal, Bowel sounds: active, all quadrants, Palpation: soft, in all quadrants, moderate abdominal tenderness, in the posterior aspect of right lateral abdomen, anterior aspect of right lateral abdomen and right lower quadrant, rebound tenderness, is not appreciated, involuntary guarding, is not appreciated, 17:45 Back: CVA tenderness, is absent, 17:45 Skin: no rash present. Vital Signs: 17:11 BP 106 / 61; Pulse 78; Resp 18; Temp 97.4; Pulse Ox 99% ; ko1 18:07 BP 110 / 64; Pulse 74; Resp 17; Pulse Ox 99% on R/A; rs5 20:08 BP 118 / 66; Pulse 88; Resp 17; Temp 97.4; Pulse Ox 99% on R/A; Pain 9/10; bm8 22:00 BP 120 / 77; Pulse 118; Resp 18; Temp 100.5; Pulse Ox 100% ; Pain 0/10; bm8 23:58 BP 99 / 70; Pulse 106; Resp 18; Temp 98.7; Pulse Ox 98% ; Pain 6/10; bm8 20:08 Pain Scale: Adult bm8 22:00 Pain Scale: Adult bm8 23:58 Pain Scale: Adult bm8 [place] Coma Score: 20:08 Eye Response: spontaneous(4). Motor Response: obeys commands(6). Verbal Response: bm8 oriented(5). Total: 15. 22:00 Eye Response: spontaneous(4). Motor Response: obeys commands(6). Verbal Response: bm8 oriented(5). Total: 15. 23:58 Eye Response: spontaneous(4). Motor Response: obeys commands(6). Verbal Response: bm8 oriented(5). Total: 15. MDM: 18:00 Differential diagnosis: appendicitis, cholecystitis, Cholelithiasis, non-specific abd cp pain, Pyelonephritis, Ureterolithiasis, urinary tract infection, ovarian cyst, ovarian torsion. 19:28 Medical Screening Exam initiated cp 19:30 Data reviewed: vital signs, nurses notes, lab test result(s), radiologic studies, CT cp scan, and as a result, I will discharge patient. 19:30 Consideration of Admission/Observation Patient was admitted/placed on observation. cp Management of patient was discussed with the following: Deportation Officer: DR Mireles will consult and patient to be admitted hospitalist services. I considered the following discharge prescriptions or medication management in the emergency department Medications were administered in the Emergency Department. See MAR. Counseling: I had a detailed discussion with the patient and/or guardian regarding the historical points, exam findings, and any diagnostic results supporting the discharge/admit diagnosis, lab results, radiology results, the need for further work-up and treatment in the hospital. Response to treatment: the patient's symptoms have mildly improved after treatment. 01/25 17:30 Order name: CBC with Diff cp 01/25 18:52 Interpretation: Normal except: WBC 16.30; RBC 3.66; HGB 6.0; HCT 20.8; MCV 56.8; MCH cp 16.3; MCHC 28.6; PLT 450; RDW 19.8; MPV 6.2; SUHAS% 88.9; LYM% 2.9; NEUT A 14.5; LYMA 0.5. 01/25 17: Order name: CMP; Complete Time: 18:52 cp 01/25 18:52 Interpretation: Normal except: NA 133; K 3.4; CO2 20; GLUC 123; CRE 0.46; GLOB 4.0; A/G cp 0.9. 01/25 17:30 Order name: Lipase; Complete Time: 18:52 cp 01/25 17:30 Order name: Test, Urine; Complete Time: 19:19 cp 01/25 17:30 Order name: Urinalysis w/ reflexes; Complete Time: 19:19 cp 01/25 18:54 Order name: Lactate w/ 2H reflex if indic. cp 01/25 18:54 Order name: Blood Culture Adult (2) cp 01/25 19:01 Order name: Type And Screen 01/25 19:46 Order name: Urinalysis w/ reflexes EDMS 01/25 19:46 Order name: CBC with Automated Diff EDMS 01/25 19:46 Order name: CBC with Automated Diff EDMS 01/25 19:46 Order name: Comprehensive Metabolic Panel EDMS 01/25 19:46 Order name: Comprehensive Metabolic Panel EDMS 01/25 19:49 Order name: CBC Smear Scan EDMS 01/25 20:02 Order name: Packed RBC Leukored EDMS 01/25 21:15 Order name: ABO/RH no charge EDMS 01/26 08:43 Order name: Manual Differential EDMS 01/26 08:50 Order name: Iron EDMS 01/26 08:50 Order name: Transferrin Sat/Iron Binding EDMS 01/25 17:30 Order name: CT Stone Protocol; Complete Time: 18:52 cp 01/25 19:46 Order name: CONS Physician Consult EDAR 01/25 17:30 Order name: IV Saline Lock; Complete Time: 18:03 cp 01/25 17:30 Order name: Labs collected and sent; Complete Time: 18:03 cp 01/25 19:27 Order name: Transfuse; Complete Time: 07:04 cp Administered Medications: 17:30 CANCELLED (Physician Discretion): diazepam2 mg IVP once cp 17:40 Drug: TORadol - Ketorolac IVP 15 mg IVP once Route: IVP; Site: right forearm; rs5 18:07 Follow up: Response: No adverse reaction; Pain is decreased rs5 17:40 Drug: Diazepam IVP 2 mg IVP once Route: IVP; Site: right forearm; rs5 18:08 Follow up: Response: No adverse reaction; Anxiety decreased rs5 17:50 Drug: Ondansetron IVP 4 mg IVP once; over 2 minutes Route: IVP; Site: right forearm; rs5 18:05 Follow up: Response: No adverse reaction rs5 17:50 Drug: NS 0.9% IV 1000 ml IV at 1 bolus Per protocol; to be given as a bolus over 60 rs5 minutes Route: IV; Rate: 1 bolus; Site: right forearm; 18:08 Follow up: Response: No adverse reaction rs5 20:52 Follow up: Response: No adverse reaction; IV Status: Completed infusion; IV Intake: bm8 1000ml 19:29 Drug: morphine IVP or IV 4 mg IVP once over 4 mins Route: IVP; Infused Over: 4 mins; jb4 Site: right forearm; 20:51 Follow up: Response: No adverse reaction bm8 20:08 Drug: Piperacillin-Tazobactam IVPB 3.375 grams IVPB once over 60 mins; (mix in NS 100 bm8 mL) Route: IVPB; Infused Over: 60 mins; Site: right forearm; 20:51 Follow up: Response: No adverse reaction; IV Status: Completed infusion; IV Intake: bm8 100ml 20:08 Drug: HYDROmorphone IVP 1 mg IVP once Route: IVP; Site: right forearm; bm8 20:51 Follow up: Response: No adverse reaction bm8 Disposition Summary: 01/26/24 19:28 Hospitalization Ordered Notes: Hospitalization Status: Inpatient Admission cp Provider: Brandin La cp Condition: Stable cp Problem: new cp Symptoms: have improved cp Bed/Room Type: Standard cp Location: [facility] ER HOLD(01/26/24 19:48) rv1 Room Assignment: ERHOLD-(01/26/24 19:48) rv1 Diagnosis - Acute appendicitis with localized peritonitis cp - Anemia, unspecified cp Forms: - Medication Reconciliation Form cp - SBAR form cp - Leadership Thank You Letter cp Addendum: 02/01/2024 17:18 Co-signature as Attending Physician, Miguelito Moncada MD I reviewed the patient's care r n provided by the Advanced Practice Provider and agree with the diagnosis and treatment plan. Signatures: Dispatcher [employer] Miguelito Marie MD MD rn Page, Corey, PA PA cp Roni Donald RN RN jb4 Renetta Crawford RN RN ko1 Luana Perez rv1 Philippe Jurado RN RN rs5 Jorge Monreal RN RN bm8 Corrections: (The following items were deleted from the chart) 01/25 17:30 17:30 Diazepam IVP 2 mg IVP once ordered. cp cp 18:54 18:54 LACTATE+C.LAB.BRZ ordered. EDMS EDMS 18:54 18:54 BLOOD CULTURE*+BA.LAB.BRZ ordered. EDMS EDMS 19:01 19:01 TYPE AND SCREEN+BB.LAB.BRZ ordered. EDMS EDMS 19:48 19:28 Telemetry/MedSurg (Inpatient) rv1 19:48 19:28 [facility]
--- NOTE | 2024-01-26 19:29 | ER ---
Nurse's Notes [facility] Name: Barbara Moreno Age: 43 yrs Sex: Female : 1980 Arrival Date: 01/26/2024 Time: 16:56 Bed 2 Private MD: Diagnosis: Acute appendicitis with localized peritonitis;Anemia, unspecified Presentation: 01/25 17:11 Chief complaint: Patient states: RLQ abdominal pain radiates around to the back. ko1 Coronavirus screen: At this time, the client does not indicate any symptoms associated with coronavirus-19. Ebola Screen: No symptoms or risks identified at this time. Initial Sepsis Screen: Does the patient meet any 2 criteria? No. Patient's initial sepsis screen is negative. Does the patient have a suspected source of infection? No. Patient's initial sepsis screen is negative. Risk Assessment: Do you want to hurt yourself or someone else? Patient reports no desire to harm self or others. Onset of symptoms was January 26, 2024. 17:11 Method Of Arrival: Wheelchair ko1 17:11 Acuity: [place] 3 ko1 Triage Assessment: 17:13 General: Appears distressed, uncomfortable, Behavior is calm, cooperative, appropriate ko1 for age. Pain: Complains of pain in posterior aspect of right lateral abdomen and right lower quadrant. GI: Reports lower abdominal pain. DIRECTOR TRIAL: 01/26 06:30 unknown bm8 Historical: - Allergies: 01/25 17:12 No Known Allergies; ko1 - Home Meds: 17:13 Adderall XR 30 mg Oral Capsule, ER 24 hr 1 cap daily [Active]; Xanax 0.5 mg Oral tablet ko1 1 tab as needed [Active]; - PMHx: 17:12 None; ko1 - PSHx: 17:12 breast reduction; right wrist and elbow; ko1 - Immunization history:: Adult Immunizations unknown. - Infectious Disease History:: Denies. - Social history:: Smoking status: Reported history of juuling and/or vaping. Screenin:[address] [facility] ED Fall Risk Assessment (Adult) History of falling in the last 3 months, rs5 including since admission No falls in past 3 months (0 pts) Confusion or Disorientation No (0 pts) Intoxicated or Sedated No (0 pts) Impaired Gait No (0 pts) Mobility Assist Device Used No (0 pt) Altered Elimination No (0 pt) Score/Fall Risk Level 0 - 2 = Low Risk Oriented to surroundings, Maintained a safe environment. Abuse screen: Denies threats or abuse. Nutritional screening: No deficits noted. Tuberculosis screening: No symptoms or risk factors identified. Assessment: 17:17 General: Appears in no apparent distress. uncomfortable. rs5 17:17 General: Behavior is cooperative, anxious. Pain: Complains of pain in abdomen Pain rs5 currently is 7 out of 10 on a pain scale. Quality of pain is described as aching, Is continuous. Neuro: Level of Consciousness is awake, alert, obeys commands, Oriented to person, place, time, situation. Cardiovascular: Patient's skin is warm and dry. Respiratory: Airway is patent Respiratory effort is even, unlabored, Respiratory pattern is regular, symmetrical. GI: Abdomen is round non-distended, Bowel sounds present X 4 quads. Abd is soft and non tender X 4 quads. Reports nausea. : No signs and/or symptoms were reported regarding the genitourinary system. EENT: No signs and/or symptoms were reported regarding the EENT system. Derm: Skin is intact, Skin is pink, warm \T\ dry. Musculoskeletal: Range of motion: intact in all extremities. 18:06 Reassessment: Patient and/or family updated on plan of care and expected duration. Pain rs5 level reassessed. Patient is alert, oriented x 3, equal unlabored respirations, skin warm/dry/pink. 18:45 Reassessment: Patient and/or family updated on plan of care and expected duration. Pain rs5 level reassessed. Patient is alert, oriented x 3, equal unlabored respirations, skin warm/dry/pink. 20:08 Reassessment: Patient and/or family updated on plan of care and expected duration. Pain bm8 level reassessed. Patient is alert, oriented x 3, equal unlabored respirations, skin warm/dry/pink. General: Appears distressed, uncomfortable, Behavior is calm, cooperative, appropriate for age. Pain: Complains of pain in right lower quadrant and posterior aspect of right lateral abdomen Pain currently is 9 out of 10 on a pain scale. Quality of pain is described as aching, crampy. Neuro: No deficits noted. Level of Consciousness is awake, alert, obeys commands, Oriented to person, place, time, situation, Appropriate for age. Cardiovascular: Denies chest pain, Capillary refill < 3 seconds in bilateral fingers Patient's skin is warm and dry. Respiratory: Airway is patent Respiratory effort is even, unlabored, Respiratory pattern is regular, symmetrical. GI: Abdomen is flat, non-distended, Bowel sounds present X 4 quads. Abdomen is tender to palpation in right lower quadrant Reports lower abdominal pain, Pain is 9 out of 10 on a pain scale. : No signs and/or symptoms were reported regarding the genitourinary system. EENT: No signs and/or symptoms were reported regarding the EENT system. Derm: No signs and/or symptoms reported regarding the dermatologic system. Musculoskeletal: No signs and/or symptoms reported regarding the musculoskeletal system. 22:00 Reassessment: Patient appears in no apparent distress at this time. No changes from 8 previously documented assessment. Patient and/or family updated on plan of care and expected duration. Pain level reassessed. Patient is alert, oriented x 3, equal unlabored respirations, skin warm/dry/pink. Patient states feeling better. 23:58 Reassessment: Patient appears in no apparent distress at this time. Patient and/or bm8 family updated on plan of care and expected duration. Pain level reassessed. Patient is alert, oriented x 3, equal unlabored respirations, skin warm/dry/pink. pt states that she would like something for pain. Vital Signs: 17:11 BP 106 / 61; Pulse 78; Resp 18; Temp 97.4; Pulse Ox 99% ; ko1 18:07 BP 110 / 64; Pulse 74; Resp 17; Pulse Ox 99% on R/A; rs5 20:08 BP 118 / 66; Pulse 88; Resp 17; Temp 97.4; Pulse Ox 99% on R/A; Pain 9/10; bm8 22:00 BP 120 / 77; Pulse 118; Resp 18; Temp 100.5; Pulse Ox 100% ; Pain 0/10; bm8 23:58 BP 99 / 70; Pulse 106; Resp 18; Temp 98.7; Pulse Ox 98% ; Pain 6/10; bm8 20:08 Pain Scale: Adult bm8 22:00 Pain Scale: Adult bm8 23:58 Pain Scale: Adult bm8 [place] Coma Score: 20:08 Eye Response: spontaneous(4). Motor Response: obeys commands(6). Verbal Response: bm8 oriented(5). Total: 15. 22:00 Eye Response: spontaneous(4). Motor Response: obeys commands(6). Verbal Response: bm8 oriented(5). Total: 15. 23:58 Eye Response: spontaneous(4). Motor Response: obeys commands(6). Verbal Response: bm8 oriented(5). Total: 15. ED Course: 16:57 Patient arrived in ED. mr 17:01 Andre Fernando PA is PHCP. cp 17:01 Miguelito Moncada MD is Attending Physician. cp 17:12 Triage completed. ko1 17:13 Arm band placed on right wrist. Patient placed in an exam room, in a wheelchair, ko1 Patient notified of wait time. 17:20 Patient has correct armband on for positive identification. Placed in gown. Bed in low rs5 position. Call light in reach. Side rails up X2. 17:22 Inserted saline lock: 22 gauge in right forearm, using aseptic technique. rs5 17:22 No provider procedures requiring assistance completed. rs5 17:37 Philippe Jurado, RN is Primary Nurse. rs5 18:14 CT Stone Protocol In Process Unspecified. EDMS 19:27 Brandin La MD is Hospitalizing Provider. cp 19:40 Inserted saline lock: 22 gauge in left forearm, using aseptic technique. Flushed with bm8 10 mL NS. 19:45 Inserted saline lock: 20 gauge in left upper arm, using aseptic technique. ,using bm8 aseptic technique. by ultrasound Blood collected. Flushed with 10 mL NS. 19:45 First set of blood cultures drawn by me, T\T\S collected, blood band applied to patient. bm8 Patient maintains SpO2 saturation greater than 95% on room air. 20:00 Second set of blood cultures drawn by me. bm8 20:08 Provided Education on: Blood Transfusion. Client placed on continuous cardiac and pulse bm8 oximetry monitoring. NIBP monitoring applied. residential monitor on. Pulse ox on. NIBP on. Door closed. Noise minimized. Visitors limited. Warm blanket given. Pillow given. Verbal reassurance given. Head of bed lowered. 01/26 06:30 Patient admitted, IV remains in place. bm8 Administered Medications: 01/25 17:30 CANCELLED (Physician Discretion): diazepam2 mg IVP once cp 17:40 Drug: TORadol - Ketorolac IVP 15 mg IVP once Route: IVP; Site: right forearm; rs5 18:07 Follow up: Response: No adverse reaction; Pain is decreased rs5 17:40 Drug: Diazepam IVP 2 mg IVP once Route: IVP; Site: right forearm; rs5 18:08 Follow up: Response: No adverse reaction; Anxiety decreased rs5 17:50 Drug: Ondansetron IVP 4 mg IVP once; over 2 minutes Route: IVP; Site: right forearm; rs5 18:05 Follow up: Response: No adverse reaction rs5 17:50 Drug: NS 0.9% IV 1000 ml IV at 1 bolus Per protocol; to be given as a bolus over 60 rs5 minutes Route: IV; Rate: 1 bolus; Site: right forearm; 18:08 Follow up: Response: No adverse reaction rs5 20:52 Follow up: Response: No adverse reaction; IV Status: Completed infusion; IV Intake: bm8 1000ml 19:29 Drug: morphine IVP or IV 4 mg IVP once over 4 mins Route: IVP; Infused Over: 4 mins; jb4 Site: right forearm; 20:51 Follow up: Response: No adverse reaction bm8 20:08 Drug: Piperacillin-Tazobactam IVPB 3.375 grams IVPB once over 60 mins; (mix in NS 100 bm8 mL) Route: IVPB; Infused Over: 60 mins; Site: right forearm; 20:51 Follow up: Response: No adverse reaction; IV Status: Completed infusion; IV Intake: bm8 100ml 20:08 Drug: HYDROmorphone IVP 1 mg IVP once Route: IVP; Site: right forearm; bm8 20:51 Follow up: Response: No adverse reaction bm8 Medication: 18:07 VIS not applicable for this client. rs5 22:35 Blood products: PRBCs X 2 units given. See transfusion record. bm8 Intake: 20:51 IV: 100ml; Total: 100ml. bm8 20:52 IV: 1000ml; Total: 1100ml. bm8 Outcome: 19:28 Decision to Hospitalize by Provider. cp 01/26 06:29 Admitted to ER Hold. Please see [facility] for further documentation. bm8 Condition: stable Instructed on the need for admit, Demonstrated understanding of instructions, follow-up care, medications, 10:38 Patient left the ED. jl7 Signatures: Dispatcher [employer] EDMS Janett Sylvester, Reg Reg mr Andre Fernando PA PA cp Bryson, James, RN RN jb4 Jose Miguel Farris RN RN jl7 Renetta Crawford RN RN ko1 Philippe Jurado RN RN rs5 Jorge Monreal RN RN bm8 Corrections: (The following items were deleted from the chart) 01/25 17:15 17:11 Chief complaint: Patient states: LLQ abdominal pain radiates around to the back ko1 ko1 18:08 18:08 Response: No adverse reaction; IV Status: Completed infusion; IV Intake: 1000ml rs5 rs5
[2024-01-26] MEDS ORDERED: ONDANSETRON 4 MG/2 ML VIAL IV PRN (19:40)
--- NOTE | 2024-01-26 19:45 | P.HP ---
Certification for Inpatient Patient admitted to: Inpatient With expected LOS: >2 Midnights Practitioner: I am a practitioner with admitting privileges, knowledge of patient current condition, hospital course, and medical plan of care. Services: Services provided to patient in accordance with Admission requirements found in Title 42 Section 412.3 of the Code of Federal Regulations Patient History Date of Service: 01/27/24 Reason for admission: Acute Appendicitis , Anemia History of Present Illness: 43-year-old female with with no significant past medical history other than a nxiety and possible ADHD was brought to ER with abdominal pain. Abdominal pain is located in right lower quadrant. Radiating to the back.. 7 out of 10 in severity. Intermittent. Associated with nausea and vomiting. Denies any fever or chills. No chest pain or shortness of breath. Denies any dysuria. Patient denies any hematemesis or melena. At the pain was progressively getting worse was brought to ER. Patient was assessed in the ER and was had a CT which was consistent with acute appendicitis and blood work was showing anemia with a hemoglobin of 6. Patient was admitted for further management Allergies NKDA Allergy (Uncoded 01/15/15 20:17) Unknown No Known Allergies Allergy (Uncoded 09/05/16 18:09) Unknown - Past Medical/Surgical History Past Medical History: Reviewed- Non-Contributory Past Surgical History: Reviewed- Non-Contributory - Family History Family History: Reviewed- Non-Contributory - Social History Smoking Status: Current some day smoker Review of Systems 10-point ROS is otherwise unremarkable Physical Examination - Vital Signs Temperature: 100.5 F Blood Pressure: 116/72 Pulse: 78 Respirations: 18 Pulse Ox (%): 94 - Physical Exam General: Alert, Cooperative, Mild distress HEENT: Atraumatic, Normocephalic Neck: Supple Respiratory: Clear to auscultation bilaterally, Normal air movement Cardiovascular: Regular rate/rhythm, Normal S1 S2 Capillary refill: <2 Seconds Gastrointestinal: W/out hepatosplenomegaly, Tenderness Musculoskeletal: No clubbing, No swelling Integumentary: No rashes Neurological: Normal speech, Normal strength at 5/5 x4 extr, Cranial nerves 3-12 intact, Normal reflexes 2+ Lymphatics: No axilla or inguinal lymphadenopathy - Studies Laboratory Data (last 24 hrs) 01/26/24 01/26/24 18:00 18:00 WBC 16.30 H Hgb 6.0 L Hct 20.8 L Plt Count 450 H Sodium 133 L Potassium 3.4 L BUN 8 Creatinine 0.46 L Glucose 123 H Total Bilirubin 0.8 AST 19 ALT 24 Alkaline Phosphatase 93 Lipase 34 Assessment and Plan - Plan Acute appendicitis Pain IV hydration N.p.o. Started on IV antibiotic Monitor closely on telemetry Surgery consulted Anemia Patient denies any bleeding Will transfuse 2 unit PRBC Monitor H&H closely Transfuse as needed Anxiety Continue home medications and titrate as needed GI/DVT prophylaxis Advanced directive full code Discharge Plan: Home Plan to discharge in: 48 Hours - Advance Directives Does patient have a Living Will: No Does patient have a Durable POA for Healthcare: No - Code Status/Comfort Care Code Status: Full Code Time Spent Managing Pts Care (In Minutes): 49
[2024-01-26 19:48] LABS: Anisocytosis 2+; Blood Morphology Comment NOTED (NOT SEEN); Hypochromasia 2+; Microcytosis 3+; Ovalocytes 1+; Platelet Estimate INCR; Poikilocytosis 2+; Polychromasia 1+; Teardrop Cell FEW; White Blood Cell Scan OK (OK)
[2024-01-26] MEDS ORDERED: HYDROMORPHONE HCL 1 MG/ML INJ ONE (19:58)
[2024-01-26] MEDS ORDERED: NA CHLORIDE 0.9% 100 ML ONE (19:58)
[2024-01-26] MEDS ORDERED: PIPERACIL/TAZO 3.375 GM VIAL IV ONE (19:59)
[2024-01-26] MEDS ORDERED: NA CHLORIDE 0.9% 500 ML ONE (20:18)
[2024-01-26] MEDS: ACETAMINOPHEN 325 MG TABLET PO PRN (21:59)
[2024-01-26] MEDS: D5 0.45 NS 1,000 ML IV SCH (22:00)
[2024-01-26] MEDS ORDERED: ACETAMINOPHEN 325 MG TABLET ONE (22:01)
[2024-01-26] MEDS ORDERED: D5 0.45 NS 1,000 ML IV ONE (22:01)
[2024-01-26 22:19] VITALS: BMI 25.1
[2024-01-27] MEDS: HYDROMORPHONE HCL 1 MG/ML INJ IV PRN (00:19)
[2024-01-27] MEDS ORDERED: HYDROMORPHONE HCL 1 MG/ML INJ ONE ×3 (00:21→10:07)
[2024-01-27] MEDS ORDERED: NA CHLORIDE 0.9% 1,000 ML ONE (05:04)
[2024-01-27] MEDS: ALBUMIN HUMAN 25% 50 ML IV ONE (05:11)
[2024-01-27] MEDS: NA CHLORIDE 0.9% 1,000 ML IV ONE (05:11)
[2024-01-27] MEDS ORDERED: ALBUMIN HUMAN 25% 100 ML IV ONE (05:14)
[2024-01-27 07:33] LABS: Absolute Eosinophils 0.1 K/uL (0-0.5); Absolute Lymphocytes (CBC) 0.5 K/uL (0.7-4.9); Absolute Monocytes 0.5 K/uL (0.1-1.3); Absolute Neutrophil 20.2 K/uL (1.8-8.0); Basophils % 0.2 % (0-1.3); Eosinophils % 0.3 % (0-4.4); Hematocrit 25.5 % (36.0-45.0); Hemoglobin 7.7 g/dL (12.0-15.0); Lymphocytes % 2.5 % (15.3-44.8); MCH 19.5 pg (27.0-35.0); MCHC 30.1 g/dL (32.0-36.0); MCV 64.6 fL (80-100); Monocytes % 2.3 % (3.3-12.3); Neutrophils % 94.7 % (41.7-73.7); Platelets 301 thou/uL (152-406); RBC Red Blood Cell Count 3.94 M/uL (3.86-4.86); Red Cell Distribution Width 27.5 % (12.1-15.2)
[2024-01-27 07:35] LABS: Anion Gap 7.8 mEq/L (5.0-15.0); Bilirubin Total 2.3 mg/dL (0.2-1.0); Globulin 3.1 g/dL (2.3-3.5); Potassium 2.8 mEq/L (3.5-5.1); Protein, Total 6.1 g/dL (6.4-8.2)
[2024-01-27] MEDS: PIPER TAZO 3.375 GM in NA CHLORIDE 0.9% 100 ML IV SCH (08:00)
[2024-01-27] MEDS ORDERED: PIPERACIL/TAZO 3.375 GM VIAL IV ONE (08:02)
[2024-01-27] MEDS ORDERED: ACETAMINOPHEN 325 MG TABLET ONE (08:02)
[2024-01-27] MEDS ORDERED: NA CHLORIDE 0.9% 100 ML ONE (08:09)
[2024-01-27] MEDS ORDERED: KCL 20 MEQ/100 mL IVPB 100 ML IV ONE (08:41)
[2024-01-27 08:42] LABS: Anisocytosis 3+; Band Neutrophils 1 % (0-1); Blood Morphology Comment NOTED (NOT SEEN); Differential Total Cells Count 100; Hypochromasia 2+; Lymphocytes 2 % (15-42); Microcytosis 2+; Monocytes 2 % (0-10); Ovalocytes 1+; Platelet Estimate ADEQ; Segmented Neutrophils 94 % (40-80)
[2024-01-27 08:43] LABS: Poikilocytosis 1+
[2024-01-27] MEDS: KCL 20 MEQ/100 mL IVPB 20 MEQ/100 ML BAG IV SCH (09:00)
[2024-01-27] MEDS ORDERED: ONDANSETRON 4 MG/2 ML VIAL ONE (10:49)
[2024-01-27] MEDS ORDERED: MIDAZOLAM HCL 2 MG/2 ML INJ ONE (10:49)
[2024-01-27] MEDS ORDERED: LIDOCAINE 2% MPF 5 ML VIAL ONE (10:49)
[2024-01-27] MEDS ORDERED: ROCURONIUM 50 MG/5 ML VIAL IV ONE (10:49)
[2024-01-27] MEDS ORDERED: FENTANYL CITR 100 MCG/2 ML ONE (10:49)
[2024-01-27] MEDS ORDERED: propofoL 200 MG/20 ML VIAL IV ONE (10:49)
[2024-01-27] MEDS: Ringers Lactate 1,000 ML IV ONE (11:00)
[2024-01-27] MEDS ORDERED: dexAMETHasone 10 MG/ML VIAL ONE (11:54)
[2024-01-27] MEDS ORDERED: GLYCOPYRROLATE 0.2 MG/ML SYR ONE ×2 (12:06→12:26)
[2024-01-27] MEDS: LIDOCAINE HCL/EPINEPHRINE 20 ML MDV ONE (12:06)
[2024-01-27] MEDS ORDERED: NEOSTIGMINE 1 MG/ML -10 ML VIAL ONE (12:26)
--- NOTE | 2024-01-27 12:35 | P.PN ---
Date of Service: 01/27/24 Subjective: pain improved with pain medication awaiting surgery ROS: 10 point ROS as noted above, otherwise negative Physical Exam: GEN: Alert, NAD HEENT: Normal conjunctiva, sclera anicteric, CV: Regular rate and rhythm, no edema Pulm: Nonlabored respirations on room air, clear bilaterally ABD: soft, moderate tenderness, most in RLQ Problem List: Acute appendicitis, s/p lap appy (01/26) gram negative bacteremia Acute blood loss anemia Hyperbilirubinemia, resolved Hyponatremia, Hypokalemia Anxiety Acute appendicitis patient presents with RLQ radiating to back. CT abdomen (01/26): appendicitis. Dr. Mireles, General surgery consulted tentative plan for lap appy today Continue empiric zosyn for now (01/26-) 100.5 temps overnight, +leukocytosis pain control IV fluids Acute blood loss anemia secondary to heavy menses / iron deficiency hgb 6.0 on admission hgb improved to 7.7 post 2uPRBC (01/26) Denies any hematemesis or melena. monitor H&H. Hyperbilirubinemia unknown origin, likely reactive to infxn Hyponatremia, Hypokalemia monitor and replete electrolytes as needed replace potassium IVF Anxiety confirm home meds, restart as appropriate VTE: SCD Code: Dispo: Home, Pending surgery, hgb stable Time Spent Managing Pts Care (In Minutes): 55
--- NOTE | 2024-01-27 12:40 | P.OP ---
Preoperative diagnosis: Appendicitis Postoperative diagnosis: Appendicitis Primary procedure: Laparoscopic Appendectomy Anesthesia: GETA + Local Estimated blood loss: <5cc Specimen: Vermiform Appendix Findings: Acute dilated infammed appendicitis, non-perforated Complications: None Transferred to: Recovery Room Condition: Good
[2024-01-27] MEDS: HYDROMORPHONE HCL 1 MG/ML INJ ONE (13:16)
[2024-01-27] MEDS: HYDROCODONE/APAP 5/325 MG TAB PO PRN (17:06)
[2024-01-27 18:21] LABS: Hematocrit 24.9 % (36.0-45.0); Hemoglobin 7.7 g/dL (12.0-15.0); MCH 19.8 pg (27.0-35.0); MCHC 30.7 g/dL (32.0-36.0); MCV 64.5 fL (80-100); Platelets 286 thou/uL (152-406); RBC Red Blood Cell Count 3.86 M/uL (3.86-4.86); Red Cell Distribution Width 25.8 % (12.1-15.2)
[2024-01-27 18:36] LABS: Anion Gap 9.6 mEq/L (5.0-15.0); Magnesium 1.5 mg/dL (1.6-2.4); Potassium 3.6 mEq/L (3.5-5.1)
--- NOTE | 2024-01-28 00:10 | OP ---
Date of Procedure: 01/27/2024 Surgeon: Sharad Mireles MD, Preoperative Diagnosis: Acute appendicitis. Postoperative Diagnosis: Acute appendicitis. Procedure: Laparoscopic appendectomy. Anesthesia: General endotracheal plus local, 1% lidocaine with epinephrine. Estimated Blood Loss: 5 cc. Specimen: Vermiform appendix. Findings: Acute inflamed nonperforated appendicitis. Complications: None. Disposition: The patient was transferred to recovery room in good condition. Procedure In Detail: After informed consent was obtained, patient was brought to the operating room, prepped and draped in the usual sterile fashion. After adequate anesthesia was achieved, I made an infraumbilical incision down to subcutaneous tissue. A 5 mm 0-degree optical trocar was introduced i n the abdomen without incident or complication. Insufflation was obtained to 15 mmHg at this time. No injury to vital structures upon entering the abdomen. Two additional trocars were placed, one in the epigastrium, one in the right lower quadrant. Both of these were similarly anesthetized, sharply incised. A 5 mm trocar was placed under direct vision without incident or complication. The umbili joel trocar was then upsized to 12 mm under direct vision without incident or complication. I then pr oceeded to have the patient tilted in the head down, right side up position. Ratcheted graspers was used to grasp the patient's cecum gently. The appendix was in the retrocecal position with significa nt inflammatory changes and attachments to the lateral pelvic sidewall. LigaSure device used to crea te a tissue plane by taking down the white line at this point to allow for mobilization and visualiza tion of the tip of the appendix, which was grasped, elevated at this point. I then created some meso appendiceal window using a LigaSure device and fired a PASCALE 45 purple load across the base of the appe ndix at the confluence of the cecum with good approximation of tissues. I then took down the mesoapp endix with the LigaSure device at this point without incident or complication. No hemostatic measure s were required. The appendix was then placed in EndoCatch bag, removed through the umbilical trocar and sent off for pathologic examination. The area was copiously irrigated and suctioned out until c ompletely dry. No additional maneuvers were required and the clips were found to be in good anatomic position. I then irrigated out the pelvis, suctioned it out until completely dry. The patient was positioned back in neutral position. The remaining effluent was suctioned out. I then closed the 12 mm trocar site using a Tanvir-Fabby suture passer with 0 Vicryl in an interrupted fashion. Good approximation of tissues. The abdomen was desufflated under direct vision without incident of compli cation. All trocars were removed. All skin incisions were then copiously irrigated and closed with a 4-0 Monocryl in a running fashion. Dermabond was placed over top. The patient tolerated the proce dure without incident or complication and transferred to PACU in good condition. All counts were cor rect at the end of the case. EUGENE/TERRELL Voice ID: [id number] Report ID: [id number]
[2024-01-28 08:22] LABS: Absolute Basophils 0.3 K/uL (0-0.5); Absolute Lymphocytes (CBC) 0.6 K/uL (0.7-4.9); Absolute Monocytes 0.9 K/uL (0.1-1.3); Absolute Neutrophil 17.1 K/uL (1.8-8.0); Basophils % 1.4 % (0-1.3); Hematocrit 25.4 % (36.0-45.0); Hemoglobin 7.7 g/dL (12.0-15.0); Lymphocytes % 3.1 % (15.3-44.8); MCH 19.6 pg (27.0-35.0); MCHC 30.3 g/dL (32.0-36.0); MCV 64.4 fL (80-100); MPV 8.1 fL (7.6-11.3); Monocytes % 4.8 % (3.3-12.3); Neutrophils % 90.7 % (41.7-73.7); Platelets 319 thou/uL (152-406); RBC Red Blood Cell Count 3.95 M/uL (3.86-4.86); Red Cell Distribution Width 26.4 % (12.1-15.2)
[2024-01-28 08:35] LABS: Albumin 2.9 g/dL (3.4-5.0); Albumin/Globulin Ratio 0.9 (1.1-1.8); Anion Gap 5.3 mEq/L (5.0-15.0); Bilirubin Direct 0.4 mg/dL (0-0.2); Bilirubin Indirect, Calculated 0.3 mg/dL (0.2-0.8); Bilirubin Total 0.7 mg/dL (0.2-1.0); Globulin 3.4 g/dL (2.3-3.5); Potassium 3.3 mEq/L (3.5-5.1); Protein, Total 6.3 g/dL (6.4-8.2)
[2024-01-28] MEDS: POTASSIUM CL SA 10 MEQ TAB PO ONE ×2 (09:23→09:30)
--- NOTE | 2024-01-28 10:11 | P.PN ---
Date of Service: 01/28/24 Subjective: dealing with some abdominal pain post-operatively. pain meds taking the edge off. reports starting her period early this morning and states she has history of heavy menstrual bleeds otherwise no issues overnight denies any urinary symptoms afebrile ROS: 10 point ROS as noted above, otherwise negative Physical Exam: GEN: Alert, NAD HEENT: Normal conjunctiva, sclera anicteric CV: Regular rate and rhythm, no edema Pulm: Nonlabored respirations on room air, clear bilaterally ABD: soft, abdominal tenderness, surgical dressing in place Neuro: Normal speech, normal affect Problem List: Acute appendicitis, s/p lap appy (01/26) gram negative bacteremia Acute blood loss anemia Hyperbilirubinemia, resolved Hyponatremia, Hypokalemia Anxiety Acute appendicitis, s/p lap appy (01/26) gram negative bacteremia patient presents with RLQ radiating to back. CT abdomen (01/26): appendicitis. Dr. Mireles, General surgery consulted s/p lap appy (01/26) blood cultures preliminary growing GNR in 4/4 bottles Continue empiric zosyn for now (01/26-) IV abx afebrile, +leukocytosis ID consult follow blood cultures pain control IV fluids Acute blood loss anemia secondary to heavy menstrual bleeding / iron deficiency reports starting her period early this morning and states she has history of heavy menstrual bleeds hgb 6.0 on admission hgb improved to 7.7 post 2uPRBC (01/26) monitor H&H. Hyperbilirubinemia, resolved likely reactive to infxn Resolved Hyponatremia, Hypokalemia monitor and replete electrolytes as needed continue IVF Anxiety confirm home meds, restart as appropriate VTE: SCD Code: Full Dispo: Home Pending blood cultures, ID recs, likely needs IV abx setup Time Spent Managing Pts Care (In Minutes): 55
[2024-01-28] MEDS: SIMETHICONE 80 MG CHEWABLE TAB PO PRN (22:42)
[2024-01-29 07:25] LABS: Absolute Eosinophils 0.2 K/uL (0-0.5); Absolute Lymphocytes (CBC) 1.3 K/uL (0.7-4.9); Absolute Monocytes 1.2 K/uL (0.1-1.3); Absolute Neutrophil 14.9 K/uL (1.8-8.0); Basophils % 0.1 % (0-1.3); Hematocrit 24.8 % (36.0-45.0); Hemoglobin 7.3 g/dL (12.0-15.0); Lymphocytes % 7.6 % (15.3-44.8); MCH 19.1 pg (27.0-35.0); MCHC 29.2 g/dL (32.0-36.0); MCV 65.4 fL (80-100); MPV 8.5 fL (7.6-11.3); Monocytes % 6.6 % (3.3-12.3); Neutrophils % 84.7 % (41.7-73.7); Platelets 301 thou/uL (152-406); Red Cell Distribution Width 27.4 % (12.1-15.2)
[2024-01-29 07:42] LABS: Anion Gap 9.3 mEq/L (5.0-15.0); Magnesium 1.6 mg/dL (1.6-2.4); Potassium 3.3 mEq/L (3.5-5.1)
[2024-01-29] MEDS: Magnesium Sulfate 2gm IVPB 2 G/50 ML BAG IV ONE (08:42)
--- NOTE | 2024-01-29 09:39 | P.PN ---
Date of Service: 01/29/24 Subjective: reports heavy menstrual bleeds, gassy pains overnight gassy pains improved but not resolved this morning otherwise doing okay ambulating around the floor afebrile ROS: 10 point ROS as noted above, otherwise negative Physical Exam: GEN: Alert, NAD HEENT: Normal conjunctiva, sclera anicteric CV: Regular rate and rhythm, no edema Pulm: Nonlabored respirations on room air, clear bilaterally ABD: soft, abdominal tenderness, surgical dressing in place Neuro: Normal speech, normal affect Problem List: Acute appendicitis, s/p lap appy (01/26) E. coli bacteremia Acute blood loss anemia, secondary to heavy menstrual bleeding / iron deficiency Hyperbilirubinemia, resolved Hyponatremia, Hypokalemia Anxiety Acute appendicitis, s/p lap appy (01/26) E. coli bacteremia patient presents with RLQ radiating to back. CT abdomen (01/26): appendicitis. Dr. Mireles, General surgery consulted s/p lap appy (01/26) blood cx (01/25): E. 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 Hyperbilirubinemia, resolved likely reactive to infxn Resolved Hyponatremia, Hypokalemia monitor and replete electrolytes as needed IVF dc'd 01/28 Anxiety confirm home meds, restart as appropriate VTE: SCD Code: Full Dispo: Home, anticipate dc Mon Time Spent Managing Pts Care (In Minutes): 55
[2024-01-29] MEDS: POTASSIUM CL SA 10 MEQ TAB PO ONE (11:43)
[2024-01-30 05:30] LABS: Absolute Eosinophils 0.3 K/uL (0-0.5); Absolute Lymphocytes (CBC) 1.1 K/uL (0.7-4.9); Absolute Monocytes 0.5 K/uL (0.1-1.3); Absolute Neutrophil 3.7 K/uL (1.8-8.0); Basophils % 0.9 % (0-1.3); Eosinophils % 5.3 % (0-4.4); Hematocrit 24.3 % (36.0-45.0); Hemoglobin 7.5 g/dL (12.0-15.0); Lymphocytes % 19.5 % (15.3-44.8); MCH 20.1 pg (27.0-35.0); MCHC 30.9 g/dL (32.0-36.0); MCV 65.2 fL (80-100); MPV 8.3 fL (7.6-11.3); Monocytes % 8.2 % (3.3-12.3); Neutrophils % 66.1 % (41.7-73.7); Nucleated Red Blood Cells % 0.1 % (0-0); Platelets 340 thou/uL (152-406); RBC Red Blood Cell Count 3.73 M/uL (3.86-4.86)
[2024-01-30 05:44] LABS: Anion Gap 8.5 mEq/L (5.0-15.0); Magnesium 1.6 mg/dL (1.6-2.4); Potassium 3.5 mEq/L (3.5-5.1)
[2024-01-30] MEDS: Magnesium Sulfate 2gm IVPB 2 G/50 ML BAG IV ONE (07:30)
[2024-01-30 08:03] LABS: Anisocytosis 3+; Blood Morphology Comment NOT SEEN (NOT SEEN); Hypochromasia 1+; Microcytosis 1+; Platelet Estimate ADEQ; White Blood Cell Scan OK (OK)
[2024-01-30] MEDS: POTASSIUM CL SA 10 MEQ TAB PO SCH (08:51)
--- NOTE | 2024-01-30 09:55 | P.PN ---
Date of Service: 01/30/24 Subjective: needing round the clock pain meds abdominal pain doesn't feel worse but isn't getting better tearful when trying to get out of bed afebrile ROS: 10 point ROS as noted above, otherwise negative Physical Exam: GEN: Alert, NAD HEENT: Normal conjunctiva, sclera anicteric CV: Regular rate and rhythm, no edema Pulm: Nonlabored respirations on room air, clear bilaterally ABD: soft, abdominal tenderness, surgical dressing in place Neuro: Normal speech, normal affect Problem List: Acute appendicitis, s/p lap appy (01/26) E. coli bacteremia Acute blood loss anemia, secondary to heavy menstrual bleeding / iron deficiency Hyperbilirubinemia, resolved Hyponatremia, Hypokalemia Anxiety Acute appendicitis, s/p lap appy (01/26) E. coli bacteremia patient presents with RLQ radiating to back. CT abdomen (01/26): appendicitis. Dr. Mireles, General surgery consulted s/p lap appy (01/26) blood cx (01/25): E. 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 Hyperbilirubinemia, resolved likely reactive to infxn Resolved Hyponatremia, Hypokalemia, improved monitor and replete electrolytes as needed IVF dc'd 01/28 improved Anxiety confirm home meds, restart as appropriate VTE: SCD Code: Full Dispo: Home, anticipate DC Tue Pending better pain control, hgb stable. IV abs until sirs resolved 24-48hr Time Spent Managing Pts Care (In Minutes): 55
[2024-01-30] MEDS ORDERED: HYDROCODONE/APAP 7.5/325 MG TAB PO PRN (10:03)
[2024-01-30] MEDS: HYDROCODONE/APAP 7.5/325 MG TAB PO PRN (13:51)
--- NOTE | 2024-01-30 13:56 | CON ---
Date of Consultation: 01/27/2024 Brief Hpi: The patient is a 43-year-old female with no significant past medical history other than a nxiety, ADHD, who presents to the ER with abdominal pain, which was getting progressively worse in th e lower abdomen, now radiating to the right lower quadrant, radiating through to her back on the righ t side as well. It is intermittent, associated with nausea, vomiting. No fever, chills. She did no t eat anything unusual that she is aware of. She had no blood in her stool. As her pain got progres sively worse, she came in the emergency room with concerns. Past Medical History: Significant for anxiety, ADHD. She has had previous pelvic surgery which she cannot recall the details of. Allergies: NO KNOWN DRUG ALLERGIES. Past Surgical History: As described. Medications: None other than oral contraceptives I believe. Social History: She smokes cigarettes every day. She denies recreational drug use. She drinks alco hol socially. Review of Systems: 10 point review of systems other than HPI, denies. Physical Examination: Vital Signs: At the time of my examination, her blood pressure 93/62, pulse 70, respiratory rate 16, temperature 97.6, SpO2 of 99% on room air. General: She is awake, alert, and oriented. Psychiatric: Appropriate, conversive. HEENT: She is normocephalic. Sclerae anicteric. Mucous membranes are moist. Oropharynx clear. Neck: Supple without JVD. Chest: Normal expansion, excursion. Cardiovascular: Regular rate and rhythm. Pulmonary: Clear to auscultation bilaterally. Abdomen: Soft with positive right lower quadrant tenderness to palpation. Positive focal peritoniti s at McBurney's point. Positive rebound, positive guarding. Extremities: No clubbing, cyanosis, edema. Skin: Warm and dry. Laboratory Data: White blood cell count of 21, hemoglobin 7.7 after transfusion of 2 units of PRBCs in the ER, hematocrit of 25.5, platelet count was 301, neutrophils are 94.7%. Her sodium 135, potass ium 2.8, chloride 108, carbon dioxide 22, BUN 7, creatinine 0.58, glucose is 126. Calcium is 7.8. H er AST 18, ALT 20, alkaline phosphatase is 71, total bilirubin 2.3. She had a CT scan of the abdomen and pelvis which is officially read as appendix is enlarged containing appendicolith, ill-defined fl uid surrounding the appendix, no extraluminal air, no abscess seen, consistent with acute appendiciti s. Assessment And Plan: This is a 43-year-old female who comes in with signs and symptoms of acute nonp erforated appendicitis. 1.IV fluid hydration. 2.Antibiotic coverage. 3.I explained the risks, benefits, alternatives of laparoscopic possible open appendectomy including , but not limited to bleeding, infection, damage to surrounding tissue, need for further operative pr ocedures, blood clots, heart attack, strokes, other unforeseen complications in the perioperative per iod. The patient displayed understanding of the above stated plan, agreed to proceed as indicated. EUGENE/TERRELL Voice ID: [id number] Report ID: [id number]
[2024-01-30] MEDS: HYDROMORPHONE HCL 1 MG/ML INJ IV PRN (16:00)
--- NOTE | 2024-01-30 22:05 | CON ---
History Of Present Illness: This is a 43-year-old female. I was consulted for antibiotic management for appendicitis. The patient came in with abdominal pain to the right lower quadrant radiating to the back, 7/10 in severity, associated with nausea and vomiting. No fever or chills. The patient's CT scan of abdomen on admission showed the patient has appendicitis. She went through surgical inter vention by Surgical Team for acute nonperforated appendicitis. Past Medical History: Noncontributory. Past Surgical History: Noncontributory. Family History: Noncontributory. Social History: Tobacco, positive. Alcohol, positive. Medications: Current medication includes Zosyn. See MAR for other medication. Allergies: NO KNOWN DRUG ALLERGIES. Review of Systems: A 10-point review was performed. Physical Examination: General: This is a 43-year-old female, lying in bed, not in any acute cardiopulmonary distress. Vital Signs: Temperature 97, pulse 81, respirations 17, blood pressure 158/98. HEENT: Unremarkable. Neck: Supple. Lungs: Basal crackles. Heart: S1, S2. Regular. Abdomen: Bowel sounds present. Tenderness on the right lower quadrant. Extremities: No edema. Laboratory Data: Shows WBC 5.7 down from 17.6, hemoglobin 7.5, platelets are 340. Chemistry shows t he patient has BUN of 4, creatinine of 0.42. Urinalysis showed the patient has less than 5 wbc. Kris ro data shows E. coli. Blood cultures are positive on 01/25, 06/09 bottles. Assessment And Plan: Acute appendicitis, being evaluated by Surgical Team for possible surgical inte rvention, currently on Zosyn. We will recommend can be switched to Rocephin and Flagyl on discharge. If the patient remains well, can be discharged on Cipro and Flagyl for total of 14 days. Followup with Surgical Team. Continue to monitor CBC and BMP twice a week while the patient is on antibiotic. We will follow the patient closely. Thank you Dr. Moncada for consult. NF/MODL Voice ID: [id number] Report ID: [id number]
[2024-01-31 04:48] LABS: Absolute Basophils 0.1 K/uL (0-0.5); Absolute Eosinophils 0.7 K/uL (0-0.5); Absolute Lymphocytes (CBC) 1.4 K/uL (0.7-4.9); Absolute Neutrophil 4.7 K/uL (1.8-8.0); Hematocrit 25.6 % (36.0-45.0); Hemoglobin 7.7 g/dL (12.0-15.0); Lymphocytes % 17.3 % (15.3-44.8); MCH 19.6 pg (27.0-35.0); MCHC 30.2 g/dL (32.0-36.0); MPV 6.9 fL (7.6-11.3); Monocytes % 12.5 % (3.3-12.3); Neutrophils % 60.2 % (41.7-73.7); Nucleated Red Blood Cells % 0.1 % (0-0); Platelets 389 thou/uL (152-406); RBC Red Blood Cell Count 3.96 M/uL (3.86-4.86); Red Cell Distribution Width 27.8 % (12.1-15.2)
[2024-01-31 04:50] LABS: MCV 64.8 fL (80-100)
[2024-01-31 05:13] LABS: Anion Gap 10.7 mEq/L (5.0-15.0); Magnesium 1.7 mg/dL (1.6-2.4); Potassium 3.7 mEq/L (3.5-5.1)
[2024-01-31] MEDS: MAGNESIUM SULFATE 1 gm IVPB 1 GM/100 ML BAG IV ONE (05:38)
[2024-01-31] MEDS ORDERED: POTASSIUM CL SA 10 MEQ TAB PO ONE (09:00)
--- NOTE | 2024-01-31 09:22 | P.PN ---
Date of Service: 01/31/24 Subjective: Doing okay, doesn't feel any worse tearful about situation shes in. frustrated she might miss holidays with her family ambulating around the floor yesterday. diffuse lower abdominal pain worsens with movement continues with heavy menstrual bleeds tolerating diet without issues ROS: 10 point ROS as noted above, otherwise negative Physical Exam: GEN: Alert, NAD HEENT: Normal conjunctiva, sclera anicteric CV: Regular rate and rhythm, no edema Pulm: Nonlabored respirations on room air, clear bilaterally ABD: soft, abdominal tenderness, surgical dressing in place Neuro: Normal speech, normal affect Problem List: Acute appendicitis, s/p lap appy (01/26) E. coli bacteremia Acute blood loss anemia, secondary to heavy menstrual bleeding / iron deficiency Hyperbilirubinemia, resolved Hyponatremia, Hypokalemia Anxiety Acute appendicitis, s/p lap appy (01/26) E. coli bacteremia patient presents with RLQ radiating to back. CT abdomen (01/26): appendicitis. Dr. Mireles, General surgery consulted s/p lap appy (01/26) blood cx (01/25): E. Coli resistant to ampicillin/ancef, partial resistance to unasyn Continue empiric zosyn for now (01/26-). Can be deescalated to oral Cipro/flagyl on DC if patient continues to improve per ID ID consulted - recommended 2 week antibiotic course. will need biweekly CBC/BMP while on antibiotic per ID. 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 Hyperbilirubinemia, resolved likely reactive to infxn Resolved Hyponatremia, Hypokalemia, improved monitor and replete electrolytes as needed IVF dc'd 01/28 improved Anxiety confirm home meds, restart as appropriate VTE: SCD Code: Full Dispo: Home, anticipate DC tomorrow Pending better pain control, hgb stable. pending CT Time Spent Managing Pts Care (In Minutes): 55
--- NOTE | 2024-01-31 11:13 | RAD REPORT ---
EXAMINATION: CT ABDOMEN AND PELVIS WITH CONTRAST CLINICAL INDICATION: Abdominal pain TECHNIQUE: CT abdomen and pelvis was performed, after the administration of 100 cc Isovue-300.. Sagit saturnino and coronal reconstructions were obtained. One or more of the following dose reduction techniques were used: Automated exposure control, adjustment of the mA and kV according to patient si ze, and iterative reconstruction. Unless otherwise specified, incidental findings do not require dedicated imaging follow-up. [id number]. Oral contrast was not given which limits evaluation of bowel and appendix. COMPARISON: .January 26, 2024 FINDINGS: Small bilateral pleural effusions. Mild right lower lobe atelectasis. Liver, spleen, pancreas, adrenals and kidneys appear unremarkable Appendectomy.: Small amount of free fluid right lower quadrant. Small amount of pneumoperitoneum. Increased density is present within the endometrium. No adnexal mass noted. No evidence of diverticulitis. Small umbilical hernia IMPRESSION: The patient is status post appendectomy with small amount of pneumoperitoneum and small amount of sonido e fluid right lower quadrant. No abscess noted. Increased density within the endometrium probably blood.
[2024-02-01 04:40] LABS: Hemoglobin 8.5 g/dL (12.0-15.0)
[2024-02-01 04:47] LABS: Anion Gap 10.8 mEq/L (5.0-15.0); Magnesium 1.8 mg/dL (1.6-2.4); Phosphorus 4.9 mg/dL (2.5-4.9); Potassium 3.8 mEq/L (3.5-5.1)
[2024-02-01 04:55] LABS: Absolute Basophils 0.1 K/uL (0-0.5); Absolute Eosinophils 0.6 K/uL (0-0.5); Absolute Lymphocytes (CBC) 1.3 K/uL (0.7-4.9); Absolute Monocytes 0.9 K/uL (0.1-1.3); Absolute Neutrophil 2.6 K/uL (1.8-8.0); Basophils % 1.3 % (0-1.3); Eosinophils % 11.4 % (0-4.4); Hematocrit 27.3 % (36.0-45.0); Lymphocytes % 23.6 % (15.3-44.8); MCH 19.8 pg (27.0-35.0); MPV 8.2 fL (7.6-11.3); Monocytes % 15.6 % (3.3-12.3); Neutrophils % 48.1 % (41.7-73.7); Nucleated Red Blood Cells % 0.2 % (0-0); Platelets 518 thou/uL (152-406); RBC Red Blood Cell Count 4.28 M/uL (3.86-4.86)
[2024-02-01 04:56] LABS: MCV 63.8 fL (80-100)
[2024-02-01] MEDS: POTASSIUM 25 MEQ EFFERV TAB PO ONE (08:07)
[2024-02-01 11:05] VITALS: O2SAT 97
[2024-02-01] MEDS: HYDROCODONE/APAP 10/325 TAB PO PRN (11:56)
[2024-02-01 16:36] VITALS: BP 148/66; TEMP 98.1
--- NOTE | 2024-02-01 16:44 | P.DS ---
Admission Date: 01/26/24 Discharge Date: 02/01/24 Disposition: ROUTINE DISCHARGE Discharge Condition: GOOD Reason for Admission: Acute Appendicitis , Anemia Hospital Course: Diagnosis: Acute appendicitis, s/p lap appy (01/26) E. coli bacteremia Acute blood loss anemia, secondary to heavy menstrual bleeding / iron deficiency Hyperbilirubinemia, resolved Hyponatremia, Hypokalemia Anxiety Patient presented with RLQ radiating to back secondary to acute appendicitis seen on CT imaging. Patient was evaluated by Dr. Mireles, general surgeon, and underwent lap appy on 01/26. Post-operatively, blood culture from admission ended up growing E. coli resistant to ampicillin/ancef, partial resistance to unasyn. She received empiric Zosyn while hospitalized and had improvement of her symptoms. ID was consulted and recommend 2 week antibiotic course. IV zosyn was deescalated to oral ciprofloxacin and Flagyl on discharge. Patient was also any heavy menstruation during the hospital stay which augmented her pain and needed more aggressive pain control. Her hgb was noted to be 6.0 on admission requiring 2 blood transfusions. Repeat hgb up to 8.5 post transfusion and stable. Drop in hemoglobin likely secondary to heavy menstrual bleeding Patient's pain has improved on Watson 10/325 as needed, she has been afebrile, leukocytosis has resolved, patient is tolerating diet and ambulatory She is deemed stable for discharge. . Vital Signs/Physical Exam: Temp Pulse Resp BP Pulse Ox 98.1 F 75 16 148/66 H 99 02/01/24 16:00 02/01/24 16:00 02/01/24 16:00 02/01/24 16:00 02/01/24 16:00 General: Alert, In no apparent distress, Oriented x3 HEENT: Mucous membr. moist/pink Neck: Supple, JVD not distended Respiratory: Clear to auscultation bilaterally, Normal air movement Cardiovascular: Regular rate/rhythm, Normal S1 S2 Gastrointestinal: Normal bowel sounds, Soft and benign, Non-distended, No tenderness Musculoskeletal: No swelling Integumentary: No rashes, No cyanosis Neurological: Normal strength at 5/5 x4 extr Laboratory Data at Discharge: WBC 5.50 thou/uL (4.3-10.9) 02/01/24 04:15 Hgb 8.5 g/dL (12.0-15.0) L D 11/26/24 04:15 Hct 27.3 % (36.0-45.0) L 02/01/24 04:15 Plt Count 518 thou/uL (152-406) H D 02/01/24 04:15 Sodium 139 mEq/L (136-145) 02/01/24 04:15 Potassium 3.8 mEq/L (3.5-5.1) 02/01/24 04:15 BUN 6 mg/dL (7-18) L 02/01/24 04:15 Creatinine 0.49 mg/dL (0.55-1.02) L 02/01/24 04:15 Glucose 118 mg/dL (74-106) H 02/01/24 04:15 Phosphorus 4.9 mg/dL (2.5-4.9) 02/01/24 04:15 Magnesium 1.8 mg/dL (1.6-2.4) 02/01/24 04:15 Total Bilirubin 0.7 mg/dL (0.2-1.0) 01/28/24 08:07 AST 37 U/L (15-37) 01/28/24 08:07 ALT 32 U/L (13-56) 01/28/24 08:07 Alkaline Phosphatase 73 U/L (45-117) 01/28/24 08:07 Lipase 34 U/L (13-75) 01/26/24 18:00 Home Medications: ALPRAZolam [Alprazolam] 0.5 mg PO PRN PRN 01/27/24 Dextroamphetamine/Amphetamine [Adderall Xr 30 mg Capsule] 30 mg PO DAILY 01/27/24 Ciprofloxacin HCl [Cipro] 500 mg PO BID #16 tab 02/01/24 Hydrocodone 10/APAP 325 [Watson 10/325*] 1 tab PO Q4H PRN #15 tab 02/01/24 metroNIDAZOLE [Flagyl] 500 mg PO Q8H #24 tab 02/01/24 New Medications: Ciprofloxacin HCl [Cipro] 500 mg PO BID #16 tab metroNIDAZOLE [Flagyl] 500 mg PO Q8H #24 tab Hydrocodone 10/APAP 325 [Watson 10/325*] 1 tab PO Q4H PRN #15 tab PRN Reason: Pain Scale 8-10 (Severe) Physician Discharge Instructions: Physician discharge instructions: Patient presented with RLQ radiating to back secondary to acute appendicitis seen on CT imaging. Patient was evaluated by Dr. Mireles, general surgeon, and underwent lap appy on 01/26. Post-operatively, blood culture from admission ended up growing E. coli resistant to ampicillin/ancef, partial resistance to unasyn. She received empiric Zosyn while hospitalized and had improvement of her symptoms. ID was consulted and recommend 2 week antibiotic course. IV zosyn was deescalated to Patient was feeling better, pain improving and tolerable on oral meds, afebrile without leukocytosis, and was deemed stable for discharge. Her hgb was noted to be 6.0 on admission requiring 2 blood transfusions. Repeat hgb up to 7.7 post transfusion and remained stable in 7s for rest of hospitalization. Suspect drop in hgb secondary to heavy menstrual bleeding / iron deficiency. She has history of iron deficiency and states she just recently started her period and usually gets very heavy menstrual bleeds. Medications: Follow up: PCP 3-5 days OBGYN in area - Dr. Hampton Please call to schedule / confirm appointments Diet: Regular Activity: No lifting more than 10 lbs Followup: Sharad Mireles MD [ACTIVE - CAN ADMIT] - NONE,NONE [Primary Care Provider] - Time spent managing pt's care (in minutes): 36
== END 2024-02-01 18:34 | disposition home or self-care (01) | DRG 398 ==
LOC: ER 16:56 → ERHOLD 19:40 → 2ND 01-27 13:14
PROVIDERS: ADMIT Family Medicine; ATTEND Internal Medicine
PROC: 30233N1 Transfusion of Nonautologous Red Blood Cells into Peripheral Vein, Percutaneous Approach (ICD-10-PCS; 2024-01-26)
PROC: 0DTJ4ZZ Resection of Appendix, Percutaneous Endoscopic Approach (ICD-10-PCS; principal; 2024-01-27 15:00)
DX: K35.30 Acute appendicitis with localized peritonitis, without perforation or gangrene (principal); D62 Acute posthemorrhagic anemia; R78.81 Bacteremia; E87.1 Hypo-osmolality and hyponatremia; Z16.11 Resistance to penicillins; R65.10 Systemic inflammatory response syndrome (SIRS) of non-infectious origin without acute organ dysfunction; E87.6 Hypokalemia; F41.9 Anxiety disorder, unspecified; D50.9 Iron deficiency anemia, unspecified; E80.6 Other disorders of bilirubin metabolism; F90.9 Attention-deficit hyperactivity disorder, unspecified type; F17.200 Nicotine dependence, unspecified, uncomplicated; B96.20 Unspecified Escherichia coli [E. coli] as the cause of diseases classified elsewhere; Z79.01 Long term (current) use of anticoagulants; Z79.899 Other long term (current) drug therapy
CPT/HCPCS: 36415; 36430; 74176; 74177; 76377; 80048; 80053; 80076; 81001; 81025; 82728; 83540; 83605; 83690; 83735; 84100; 84132; 84466; 85025; 85027; 86850; 86900; 86901; 86920; 87040; 87077; 87186; 87205; 88304; 94010; 96361; 96365; 96375; 99285; J1100; J1171; J2003; J2250; J2405; J2543; J2704; J2710; J3010; J3360; J3475; J3480; J7030; J7050; J7120; J7799; P9016; P9047; Q9967